=== PATIENT | female | born 1985 | race Caucasian/White ===

== ENCOUNTER 2016-12-11 08:59 | Observation (INO) ==
--- NOTE | 2016-12-11 09:23 | Emergency Department Note ---
Disposition Clinical Impression: Gastroenteritis DKA (diabetic ketoacidosis) Qualifiers: Diabetes mellitus type: type 1 Diabetes mellitus complication detail: without coma Qualified Code(s): E10.10 - Type 1 diabetes mellitus with ketoacidosis without coma Disposition: Admitted As Inpatient Condition: Fair Nausea/Vomiting/Diarrhea HPI - General Chief complaint: ED Nausea/Vomiting/Diarrhea Stated complaint: Nausea Vomiting Diarrhea Time Seen by Provider: 12/11/16 09:02 Source: patient Mode of arrival: private vehicle Limitations: other (memory loss) Nursing Notes Reviewed: Yes Vital Signs Reviewed: Yes - History of Present Illness HPI Narrative: Patient presents to the ED complaining of nausea, vomiting, diarrhea, weakness and lightheadedness. Symptoms have been going on for 3 days. States she thinks she has the flu. She also has body aches. No fever or chills. She cannot give a number of how many episodes of vomiting but states it "is a lot". It is nonbloody and nonbilious. States she has had 4-5 episodes of watery diarrhea each day as well. No abdominal pain. No chest pain or shortness of breath. States she has only had a small amount of ice and water since she was seen here just 24 hours ago for the same symptoms. She is also a diabetic with a history of multiple DKA episodes. Lab work yesterday showed normal kidney function, electrolytes and glucose in the 200s. She states she has not checked her glucose today or taken any insulin because she was too weak to walk to her kitchen at home. She was prescribed Phenergan and Zofran yesterday after receiving IV fluids here in the ED but states she was too weak to go to the pharmacy to get them filled. She has not taken anything at home for her symptoms since being here yesterday. She reports multiple family members sick at home recently with strep throat and flulike symptoms. - Related Data Home Medications Medication Instructions Recorded Confirmed Insulin ASPART [Novolog Flexpen] 5 unit SQ TIDWM 01/09/16 12/10/16 Previous Rx's Medication Instructions Recorded Levothyroxine Sodium [Synthroid] 137 mcg PO DAILY #30 tablet 01/10/16 Insulin DETEMIR [Levemir Flextouch] 32 unit SQ DAILY #0 07/25/16 Ondansetron [Zofran ODT] 4 mg SL Q6HR PRN #5 tab.rapdis 12/10/16 Promethazine [Phenergan] 25 mg RC Q6HR PRN #10 supp.rect 12/10/16 Allergies Allergy/AdvReac Type Severity Reaction Status Date / Time No Known Allergies Allergy Verified 12/10/16 10:40 Constitutional: Reports: fever (subjective), chills, weakness (generalized). Denies: weight change Eyes: Denies: eye pain, eye discharge, vision change ENT ED: Denies: ear pain, throat pain, dental pain, hearing loss, epistaxis, congestion, dysphagia Cardiovascular: Denies: chest pain, palpitations, dyspnea on exertion, edema, syncope Respiratory: Denies: cough, dyspnea, wheezes, hemoptysis, stridor Gastrointestinal: Reports: nausea, vomiting, diarrhea. Denies: abdominal pain, constipation, hematemesis, melena, hematochezia Genitourinary: Denies: dysuria, frequency, hematuria, discharge Musculoskeletal: Reports: myalgia. Denies: back pain, neck pain, arthralgia Integumentary: Denies: rash, abrasion, lesions Neurological: Denies: headache, weakness, numbness, paresthesias, confusion, abnormal gait, vertigo Psychiatric: Denies: anxiety, depression, suicidal thoughts, homicidal thoughts , auditory hallucinations, visual hallucinations Endocrine: Reports: fatigue Hematological/Lymphatic: Denies: easy bleeding, easy bruising Allergic/Immunologic: Denies: facial swelling, urticaria Past Medical History - Past Medical History Medical history: Reports: diabetes, kidney stones, thyroid disease, other Surgical history: Reports: cholecystectomy Psychiatric history: Reports: depression [employer] history: Reports: no [employer]TER history - Social History Smoking Status: Current every day smoker Smokeless Tobacco Status: No Alcohol use: Reports: none Drug use: Reports: none Physical Exam - General Limitations: other General appearance: alert, in no apparent distress - Head Head exam: atraumatic, normocephalic, normal inspection - Eye Eye exam: Present: normal appearance, PERRL, EOMI - ENT ENT exam: normal exam, normal oropharynx, mucous membranes dry - Chest Chest inspection: Present: normal inspection, symmetric chest wall rise - Respiratory Respiratory exam: Present: normal lung sounds bilaterally - Cardiovascular Cardiovascular exam: Present: regular rate, normal rhythm, normal heart sounds - Abdominal Exam Abdominal exam: Present: soft, Non-Tender, normal bowel sounds. Absent: tenderness, distention, guarding, rebound, rigidity - Extremities Exam Extremities exam: Present: normal inspection, full ROM. Absent: tenderness, pedal edema - Back Exam Back exam: Present: normal inspection, full ROM. Absent: tenderness - Neurological Exam Neurological exam: Present: alert, oriented X3 - Psychiatric Psychiatric exam: Present: normal affect, normal mood - Skin Skin exam: Present: warm, dry, intact, normal color. Absent: rash Course Course Narrative: Patient returns to the ED again with complaints of 3 days of nausea, vomiting and diarrhea. She cannot quantify her vomiting but reports keeping down very little water and ice. She has not filled her prescriptions for nausea medicine or taking anything for her diarrhea at home. Given her history of DKA and not using her insulin will check labs for electrolytes, kidney function and glucose. Will give IV fluids along with medication for nausea and diarrhea. Agree with previous assessment from yesterday's visit that she likely has a simple viral gastroenteritis. She is counseled on the importance of needing to fill her prescriptions to continue symptomatic treatment at home. - Reevaluation(s) Reevaluation #1: Laboratory studies showed multiple abnormalities including glucose over 600, low pH, low bicarbonate and sodium with an elevated beta-hydroxybutyric acid consistent with DKA. She was given 10 units of IV insulin along with IV fluids. She will need to be admitted for continued management. Patient and family updated on results and need for admission. I spoke to the hospitalist manager control, Dr. Ruby who has agreed to accept the patient. We will continue to monitor glucose closely and provide insulin as needed until she is transferred to the floor. Time: 12:01 Vital Signs Temperature 98.1 F 12/11/16 09:00 Pulse Rate 118 12/11/16 09:00 Respiratory Rate 16 12/11/16 09:00 Blood Pressure 108/67 12/11/16 09:00 O2 Sat by Pulse Oximetry 97 12/11/16 09:00 Temperature 98.1 F 12/11/16 09:00 Pulse Rate 107 12/11/16 12:12 Respiratory Rate 16 12/11/16 12:12 Blood Pressure 127/75 12/11/16 12:12 O2 Sat by Pulse Oximetry 97 12/11/16 12:12 Oxygen Delivery Oxygen Delivery Room Air Nausea/Vomiting/Diarrhea - Differential Diagnosis Likely: gastroenteritis, dehydration - Medical Records Medical records reviewed: Yes I reviewed the patient's medical records. - Lab Data Lab results reviewed: Yes I reviewed the patient's lab results. Result diagrams: 12/11/16 09:50 12/11/16 09:50 Lab Results 12/11/16 12/11/16 12/11/16 Range/Units 09:50 09:50 09:50 WBC 5.8 (4.3-11.1) K/mcL RBC 4.73 (3.82-4.97) M/mcL Hgb 14.8 (11.5-15.4) g/dL Hct 44.7 (35.3-44.9) % MCV 94.5 (83.0-100.0) fL MCH 31.3 (28.0-33.3) pg MCHC 33.1 (31.6-35.5) g/dL RDW 11.9 (11.5-14.5) % Plt Count 226 (140-400) K/mcL MPV 10.2 (9.4-12.4) fL Immature Gran % 0.2 (0-4) % Seg Neutrophils % 76.8 % Lymphocytes % 14.8 % Monocytes % 7.9 % Eosinophils % 0.0 % Basophils % 0.3 % Neutrophils # 4.5 (1.6-8.9) K/mcL Lymphocytes # 0.9 (0.6-4.6) K/mcL Monocytes # 0.5 (0.0-1.3) K/mcL Eosinophils # 0.0 (0.0-0.6) K/mcL Basophils # 0.0 (0.0-0.2) K/mcL VBG pH 7.21 L (7.32-7.42) pH Units VBG pCO2 31.4 L (41-51) mmHg VBG pO2 27.9 (25-40) mmHg VBG HCO3 12.5 L (21-27) mEq/L Sodium 133 L (136-145) mEq/L Potassium 5.7 H D (3.5-4.5) mEq/L Chloride 98 (98-109) mEq/L Carbon Dioxide 10 L* (19-29) mEq/L BUN 16 (7-20) mg/dL Creatinine 1.47 H D (0.57-1.11) mg/dL Est GFR ( Amer) 51 L (> 60) Est GFR (Non-Af Amer) 42 L (> 60) BUN/Creatinine Ratio 11 (6-26) Glucose 679 H* (70-99) mg/dL POC Glucose (58-89) Calculated Osmolality 309 H (280-300) Calcium 9.4 (8.6-10.8) mg/dL Beta-Hydroxybutyric Acd > 2.00 H (0.02-0.27) mmol/L 12/11/16 12/11/16 Range/Units 12:04 12:06 WBC (4.3-11.1) K/mcL RBC (3.82-4.97) M/mcL Hgb (11.5-15.4) g/dL Hct (35.3-44.9) % MCV (83.0-100.0) fL MCH (28.0-33.3) pg MCHC (31.6-35.5) g/dL RDW (11.5-14.5) % Plt Count (140-400) K/mcL MPV (9.4-12.4) fL Immature Gran % (0-4) % Seg Neutrophils % % Lymphocytes % % Monocytes % % Eosinophils % % Basophils % % Neutrophils # (1.6-8.9) K/mcL Lymphocytes # (0.6-4.6) K/mcL Monocytes # (0.0-1.3) K/mcL Eosinophils # (0.0-0.6) K/mcL Basophils # (0.0-0.2) K/mcL VBG pH (7.32-7.42) pH Units VBG pCO2 (41-51) mmHg VBG pO2 (25-40) mmHg VBG HCO3 (21-27) mEq/L Sodium (136-145) mEq/L Potassium (3.5-4.5) mEq/L Chloride (98-109) mEq/L Carbon Dioxide (19-29) mEq/L BUN (7-20) mg/dL Creatinine (0.57-1.11) mg/dL Est GFR ( Amer) (> 60) Est GFR (Non-Af Amer) (> 60) BUN/Creatinine Ratio (6-26) Glucose (70-99) mg/dL POC Glucose 446 H* 438 H* (58-89) Calculated Osmolality (280-300) Calcium (8.6-10.8) mg/dL Beta-Hydroxybutyric Acd (0.02-0.27) mmol/L
[2016-12-11] MEDS ORDERED: Ondansetron 4 MG/2 ML VIAL IV ONE (09:36)
[2016-12-11] MEDS ORDERED: 0.9 % Sodium Chloride 1,000 ML IV ONE ×2 (09:36→10:53)
[2016-12-11 09:57] LABS: Basophils % 0.3 %; Hematocrit 44.7 % (35.3-44.9); Hemoglobin 14.8 g/dL (11.5-15.4); Immature Granulocytes % 0.2 % (0-4); Lymphocytes # 0.9 K/mcL (0.6-4.6); Lymphocytes % 14.8 %; Mean Corpuscular HGB Conc 33.1 g/dL (31.6-35.5); Mean Corpuscular Hemoglobin 31.3 pg (28.0-33.3); Mean Corpuscular Volume 94.5 fL (83.0-100.0); Mean Platelet Volume 10.2 fL (9.4-12.4); Monocytes # 0.5 K/mcL (0.0-1.3); Monocytes % 7.9 %; Neutrophils # 4.5 K/mcL (1.6-8.9); Platelet Count 226 K/mcL (140-400); Red Blood Count 4.73 M/mcL (3.82-4.97); Red Cell Distribution Width 11.9 % (11.5-14.5); Segmented Neutrophils % 76.8 %
[2016-12-11 10:10] LABS: Beta-Hydroxybutyric Acid > 2.00 mmol/L (0.02-0.27)
[2016-12-11 10:12] LABS: BUN/Creatinine Ratio 11 (6-26); Blood Urea Nitrogen 16 mg/dL (7-20); Calcium 9.4 mg/dL (8.6-10.8); Chloride 98 mEq/L (98-109); Osmolality,Calculated 309 (280-300); Potassium 5.7 mEq/L (3.5-4.5); Sodium 133 mEq/L (136-145); eGFR For African Americans 51 (> 60); eGFR For Non-African Americans 42 (> 60)
[2016-12-11 10:14] LABS: Carbon Dioxide 10 mEq/L (19-29); Glucose 679 mg/dL (70-99)
[2016-12-11] MEDS ORDERED: Insulin Human Regular 10 UNIT in 0.9 % Sodium Chloride 10 ML IV ONE ×2 (10:54→11:15)
[2016-12-11 11:01] LABS: VBG PCO2 31.4 mmHg (41-51); VBG PH 7.21 pH Units (7.32-7.42)
[2016-12-11 11:02] LABS: VBG HCO3 12.5 mEq/L (21-27); VBG PO2 27.9 mmHg (25-40)
[2016-12-11] MEDS ORDERED: Acetaminophen 325 MG TABLET PO ONE (11:41)
[2016-12-11] MEDS ORDERED: Naloxone 0.4 MG/ML INJ IVP PRN ×2 (12:14→13:41)
[2016-12-11] MEDS ORDERED: Insulin Human Regular 20 UNIT in 0.9 % Sodium Chloride 10 ML IV ONE (16:25)
[2016-12-11] MEDS ORDERED: Dextrose Gel 15 GM PO PRN ×2 (16:28)
[2016-12-11] MEDS ORDERED: *HR* Dextrose 50 % in Water (Syg) 50 ML SYRINGE IVP PRN (16:28)
[2016-12-11] MEDS ORDERED: D5% in Water 1,000 ML IV PRN (16:28)
[2016-12-11] MEDS: Insulin LISPRO 300 UNITS/3 ML VIAL SQ SCH (17:37)
--- NOTE | 2016-12-11 18:53 | Internal Med History&Physical ---
Date of Encounter: 12/11/16 Time of Encounter: 18:25 Assessment and Plan (1) DKA (diabetic ketoacidosis) Current visit: Yes Status: Acute She has been admitted to [facility] floor. IV fluids will be given and Accu-Cheks monitored with SSI. Her home dose of Levemir will be increased to 32 units. Qualifiers: Diabetes mellitus type: type 1 Diabetes mellitus complication detail: without coma Qualified Code(s): E10.10 - Type 1 diabetes mellitus with ketoacidosis without coma (2) Gastroenteritis Current visit: Yes Status: Acute She will be given IV fluids and prn anti-emetics (3) Hypothyroid Current visit: No Status: Chronic Will recheck TSH in a.m. Qualifiers: Hypothyroidism type: unspecified Qualified Code(s): E03.9 - Hypothyroidism , unspecified Internal Medicine - H&P: HPI Chief complaint: Nausea, vomiting, DKA Admitted From: Home Plans for Post Hospital Care: Home History of present illness: Ms. Puga is a 31 year old female who came to emergency room December 10 complaining of onset of nausea vomiting diarrhea earlier in the day. She was treated and discharged home. Her symptoms persisted so she came back to emergency room the morning of December 11. Her lab work showed evidence of DKA with serum CO2 of 10 and glucose 679. She was admitted to [facility] floor for ongoing care needs. She is been hospitalized [facility] in the past with DKA. Her most recent hospitalization was June 2016. She was diagnosed with diabetes in 2011. She states she checks her sugars at least 3-4 times daily and states they drop at nighttime to less than 50 mg percent but are often 350-400 milligrams percent range. She denies missing any doses of her insulin. She was instructed at the June 2016 discharged to increase her Levemir to 32 units daily. She did not do this. Her endocrine history is pertinent otherwise for hyperlipidemia and hypothyroidism. She states she ran out of Synthroid approximately 5 days ago. Past Med Surg Social Fam HX - Past Medical History Medical history: diabetes, kidney stones, thyroid disease, other Psychiatric history: depression - Past Surgical History Surgical History: cholecystectomy - Social History Smoking Status: Current every day smoker Smokeless Tobacco Status: No Alcohol use: none Drug use: none - Family History Mother History Unknown: Yes Living Status: Still Living Hx Family Cardiac Disorders: (N/A) Hx Family Respiratory Disorders: Yes (ASTHMA) Hx Family Cancer: No Hx Family GI Disorders: No Hx Family Genitourinary Disorders: No Hx Family Endocrine Disorder: Yes (THYROID) Hx Family Musculoskeletal Disorders: Yes (ARTHRITIS) Hx Family Neuromuscular Disorders: No Hx Family Neurologic Disorders: No Hx Family HEENT Disorders: No Hx Family Autoimmune Disorders: No Hx Family Reproductive Disorders: No Hx Family Psychosocial Disorders: No Hx Family Medical Disorders: No Internal Medicine - H&P: Meds Insulin ASPART [Novolog Flexpen] 5 unit SQ TIDWM 01/09/16 [History] Levothyroxine Sodium [Synthroid] 137 mcg PO DAILY #30 tablet 01/10/16 [Rx] Insulin DETEMIR [Levemir Flextouch] 32 unit SQ DAILY #0 07/25/16 [Rx] Ondansetron [Zofran ODT] 4 mg SL Q6HR PRN #5 tab.rapdis 12/10/16 [Rx] Promethazine [Phenergan] 25 mg RC Q6HR PRN #10 supp.rect 12/10/16 [Rx] Allergies No Known Allergies Allergy (Verified 12/10/16 10:40) All Systems PM: A 10-system review of systems was performed and is negative for pertinent findings except as documented above in the HPI. Review of systems: Her review of systems from the June 2016 hospitalization were reviewed and revised as below. Gen.: Her weight has decreased from 71.668 kg at the June 2016 hospitalization to 67.132 kg now. Cardiovascular: She denies LA hypertension heart failure angina DVT or pulmonary embolus. Respiratory: She smoked since age 20 up to one half pack per day. She does not have known chronic lung disease and does not wear home oxygen. GI: She denies disorders of her liver gallbladder or exocrine pancreas : She has had kidney stones in the past. She denies other kidney or bladder disorders. She has had acute azotemia documented with previous episodes of DKA. Endocrine: As per history of present illness Neurologic: She denies large distribution strokes or seizures. Heme/onc: She denies blood disorders cancers or anemia. Psychiatric: She denies anxiety depression or other mental health issues Musk skeletal: She denies arthritis gout or osteoporosis. - Constitutional Vitals: Temp Pulse Resp BP Pulse Ox 98.8 F 113 16 103/60 97 12/11/16 16:09 12/11/16 16:09 12/11/16 16:09 12/11/16 16:09 12/11/16 16:09 Exam: Gen.: She is a well-developed well-nourished female lying in bed who appears in no severe distress at present time. HEENT: Head is atraumatic and normocephalic. Eyes: EOMI. There is no scleral icterus. Mouth: Mucosa is moist. Neck: Supple and nontender. There is no thyromegaly or adenopathy noted. Heart: Regular and tachycardic at a rate of 120/m. No murmurs or gallops heard. Lungs: No wheezes or crackles heard. Abdomen: Soft and nontender. No masses or guarding are noted. Extremities: There is no cyanosis edema or clubbing noted. Dorsalis pedis and posttibial pulses are 1-2 over 2 bilaterally. Neurologic: Mental status: She is talkative and a fair historian. Cranial nerves: Smile is symmetric. Forehead wrinkles bilaterally. Tongue protrudes midline. EOMI. Motor: There is no pronator drift. Cerebellar: Finger to nose is intact bilaterally. Skin: Warm and dry Internal Med - H&P Results - Labs CBC & Chem 7: 12/11/16 09:50 12/11/16 09:50 - VTE Reasons for not Prescribing Prophylaxis: Treatment not Indicated - Low risk for VTE
[2016-12-11] MEDS ORDERED: 0.9 % Sodium Chloride 1,000 ML IVC SCH (19:00)
[2016-12-11] MEDS ORDERED: Insulin DETEMIR 100 UNIT/ML X5UNITS SQ SCH (21:00)
[2016-12-11] MEDS: 0.9 % Sodium Chloride 1,000 ML IV SCH (21:34)
[2016-12-12] MEDS: 0.9 % Sodium Chloride 1,000 ML IV SCH ×2 (02:55→09:28)
[2016-12-12 06:12] LABS: Basophils % 0.3 %; Hematocrit 32.5 % (35.3-44.9); Hemoglobin 11.3 g/dL (11.5-15.4); Immature Granulocytes % 0.3 % (0-4); Lymphocytes # 1.2 K/mcL (0.6-4.6); Lymphocytes % 33.4 %; Mean Corpuscular HGB Conc 34.8 g/dL (31.6-35.5); Mean Corpuscular Hemoglobin 31.7 pg (28.0-33.3); Mean Platelet Volume 9.8 fL (9.4-12.4); Monocytes # 0.4 K/mcL (0.0-1.3); Monocytes % 11.8 %; Platelet Count 194 K/mcL (140-400); Red Blood Count 3.57 M/mcL (3.82-4.97); Red Cell Distribution Width 11.9 % (11.5-14.5); Segmented Neutrophils % 54.2 %
[2016-12-12 06:41] LABS: Alanine Aminotransferase 11 Units/L (0-55); Albumin/Globulin Ratio 1.2 (1.1-2.2); Alkaline Phosphatase 81 Units/L (38-126); Aspartate Amino Transferase 15 Units/L (5-34); BUN/Creatinine Ratio 13 (6-26); Bilirubin,Total 0.2 mg/dL (0.2-1.2); Blood Urea Nitrogen 10 mg/dL (7-20); Calcium 7.4 mg/dL (8.6-10.8); Carbon Dioxide 16 mEq/L (19-29); Chloride 112 mEq/L (98-109); Globulin 2.6 g/dL (2.4-3.5); Glucose 74 mg/dL (70-99); Magnesium 1.2 mg/dL (1.6-2.6); Osmolality,Calculated 284 (280-300); Phosphorous 1.8 mg/dL (2.3-4.7); Potassium 3.7 mEq/L (3.5-4.5); Sodium 138 mEq/L (136-145); Total Protein 5.6 g/dL (6.0-8.3); eGFR For African Americans > 60 (> 60); eGFR For Non-African Americans > 60 (> 60)
[2016-12-12 06:52] LABS: Beta-Hydroxybutyric Acid > 2.00 mmol/L (0.02-0.27)
[2016-12-12 07:02] LABS: Thyroid Stimulating Hormone 27.881 mcIU/mL (0.350-4.840)
[2016-12-12] MEDS: Insulin LISPRO 300 UNITS/3 ML VIAL SQ SCH ×3 (08:29→17:42)
[2016-12-12 08:35] LABS: Hemoglobin A1C 11.9 %
[2016-12-12] MEDS: Acetaminophen 325 MG TABLET PO PRN ×2 (09:30→16:29)
--- NOTE | 2016-12-12 11:25 | Internal Med Progress Note ---
Date of Encounter: 12/12/16 Time of Encounter: 11:15 - Assessment and plan (1) DKA (diabetic ketoacidosis) Current Visit: Yes Status: Acute Assessment and plan: December 12. Continue IV fluids. Will reduce Levemir dose slightly since she had hypoglycemia this morning. Hemoglobin A1c returned significantly elevated at 11.9%. Check labs in a.m. Qualifiers: Diabetes mellitus type: type 1 Diabetes mellitus complication detail: without coma Qualified Code(s): E10.10 - Type 1 diabetes mellitus with ketoacidosis without coma (2) Gastroenteritis Current Visit: Yes Status: Acute Assessment and plan: Continue IV fluids and prn anti-emetics (3) Hypothyroid Current Visit: No Status: Chronic Assessment and plan: December 12. TSH returned significantly elevated at 27.881. I will increase dose of Synthroid. Qualifiers: Hypothyroidism type: unspecified Qualified Code(s): E03.9 - Hypothyroidism , unspecified (4) Hypomagnesemia Current Visit: Yes Status: Acute Assessment and plan: December 12. We will give magnesium sulfate IV (5) Hypophosphatemia Current Visit: Yes Status: Acute Assessment and plan: December 12. We will give Neutra-Phos and recheck labs in a.m. - Subjective Interval history: December 12. She has no new complaints. She states she still does not feel well. Denies vomiting this morning. - Constitutional Vitals: Temp Pulse Resp BP Pulse Ox 99.6 F 96 18 94/57 94 L 12/12/16 10:45 12/12/16 10:45 12/12/16 10:45 12/12/16 10:45 12/12/16 10:45 Exam: She is sitting in bed and appears to be fairly comfortable. She is not dyspneic and does not complain of pain. I reviewed her medications and lab results with her. Internal Medicine: Result - Labs CBC & Chem 7: 12/12/16 05:43 12/12/16 05:43 Labs: Short CBC 12/12/16 Range/Units 05:43 WBC 3.6 L (4.3-11.1) K/mcL Hgb 11.3 L D (11.5-15.4) g/dL Hct 32.5 L (35.3-44.9) % Plt Count 194 (140-400) K/mcL Neutrophils # 2.0 (1.6-8.9) K/mcL BMP 12/12/16 05:43 Sodium 138 Potassium 3.7 D Chloride 112 H Carbon Dioxide 16 L BUN 10 Creatinine 0.80 Glucose 74 Calcium 7.4 L D Liver Function 12/12/16 Range/Units 05:43 Total Bilirubin 0.2 (0.2-1.2) mg/dL AST 15 (5-34) Units/L ALT 11 (0-55) Units/L Alkaline Phosphatase 81 (38-126) Units/L Albumin 3.0 L (3.5-5.0) g/dL - VTE Reasons for not Prescribing Prophylaxis: Treatment not Indicated - Low risk for VTE Consult Discharge Plan - Plan Referrals: NO,PCP [Primary Care Provider] - 1 week
[2016-12-12] MEDS ORDERED: Magnesium Sulfate 1 GM in D5% in Water 100 ML IVPB ONE (11:30)
[2016-12-12] MEDS ORDERED: Insulin DETEMIR 100 UNIT/ML X5UNITS SQ SCH (11:31)
[2016-12-12] MEDS: 0.45 % Sodium Chloride w/KCl 20 MEQ/1,000 ML MLS IVC SCH ×2 (15:04→22:55)
[2016-12-12] MEDS: Ondansetron 4 MG/2 ML VIAL IVP PRN ×2 (16:20→21:09)
[2016-12-12] MEDS ORDERED: D5% in 0.45% NACL 1,000 ML IVC PRN (20:57)
[2016-12-12] MEDS ORDERED: D5% in 0.45% NACL w KCl 20 MEQ/1,000 ML MLS IVC PRN (20:57)
[2016-12-13] MEDS: 0.45 % Sodium Chloride w/KCl 20 MEQ/1,000 ML MLS IVC SCH ×2 (01:58→13:12)
[2016-12-13] MEDS: Insulin DETEMIR 100 UNIT/ML X5UNITS SQ SCH ×2 (06:13→20:03)
[2016-12-13 06:59] LABS: Basophils % 0.2 %; Eosinophils % 0.4 %; Hematocrit 31.9 % (35.3-44.9); Hemoglobin 11.1 g/dL (11.5-15.4); Immature Granulocytes % 0.2 % (0-4); Lymphocytes % 22.1 %; Mean Corpuscular HGB Conc 34.8 g/dL (31.6-35.5); Mean Corpuscular Volume 91.9 fL (83.0-100.0); Mean Platelet Volume 9.4 fL (9.4-12.4); Monocytes # 0.4 K/mcL (0.0-1.3); Monocytes % 8.1 %; Neutrophils # 3.2 K/mcL (1.6-8.9); Platelet Count 164 K/mcL (140-400); Red Blood Count 3.47 M/mcL (3.82-4.97); Red Cell Distribution Width 12.2 % (11.5-14.5)
[2016-12-13 07:16] LABS: Alanine Aminotransferase 12 Units/L (0-55); Albumin 2.8 g/dL (3.5-5.0); Albumin/Globulin Ratio 0.9 (1.1-2.2); Alkaline Phosphatase 80 Units/L (38-126); Aspartate Amino Transferase 18 Units/L (5-34); Bilirubin,Total 0.2 mg/dL (0.2-1.2); Calcium 7.4 mg/dL (8.6-10.8); Carbon Dioxide 16 mEq/L (19-29); Chloride 106 mEq/L (98-109); Glucose 400 mg/dL (70-99); Magnesium 1.6 mg/dL (1.6-2.6); Osmolality,Calculated 292 (280-300); Phosphorous 1.4 mg/dL (2.3-4.7); Potassium 4.5 mEq/L (3.5-4.5); Sodium 134 mEq/L (136-145); Total Protein 5.8 g/dL (6.0-8.3)
[2016-12-13 07:18] LABS: Beta-Hydroxybutyric Acid > 2.00 mmol/L (0.02-0.27); Blood Urea Nitrogen 5 mg/dL (7-20)
[2016-12-13] MEDS: Insulin LISPRO 300 UNITS/3 ML VIAL SQ SCH ×3 (08:02→16:23)
[2016-12-13] MEDS: Acetaminophen 325 MG TABLET PO PRN ×2 (08:35→20:03)
[2016-12-13 08:46] LABS: BUN/Creatinine Ratio 6 (6-26); eGFR For African Americans > 60 (> 60); eGFR For Non-African Americans > 60 (> 60)
[2016-12-13] MEDS ORDERED: Insulin DETEMIR 100 UNIT/ML X5UNITS SQ ONE (09:45)
[2016-12-13] MEDS: Ondansetron 4 MG/2 ML VIAL IVP PRN (12:52)
--- NOTE | 2016-12-13 15:28 | Internal Med Progress Note ---
Date of Encounter: 12/13/16 Time of Encounter: 15:15 - Assessment and plan (1) DKA (diabetic ketoacidosis) Current Visit: Yes Status: Acute Assessment and plan: December 12. Continue IV fluids. Will reduce Levemir dose slightly since she had hypoglycemia this morning. Hemoglobin A1c returned significantly elevated at 11.9%. Check labs in a.m. December 13. Continue IV fluids. We will continue Levemir at present dose and continue Accu-Cheks with SSI. Recheck labs in a.m. Qualifiers: Diabetes mellitus type: type 1 Diabetes mellitus complication detail: without coma Qualified Code(s): E10.10 - Type 1 diabetes mellitus with ketoacidosis without coma (2) Gastroenteritis Current Visit: Yes Status: Acute Assessment and plan: December 12. Continue IV fluids and prn anti-emetics (3) Hypothyroid Current Visit: No Status: Chronic Assessment and plan: December 12. TSH returned significantly elevated at 27.881. I will increase dose of Synthroid. Qualifiers: Hypothyroidism type: unspecified Qualified Code(s): E03.9 - Hypothyroidism , unspecified (4) Hypomagnesemia Current Visit: Yes Status: Acute Assessment and plan: December 12. We will give magnesium sulfate IV December 13. Magnesium level now normal. We will give magnesium oxide for a few days to maintain normal levels. (5) Hypophosphatemia Current Visit: Yes Status: Acute Assessment and plan: December 12. We will give Neutra-Phos and recheck labs in a.m. December 13. Will increase dose of Neutra-Phos since her level is still subnormal. - Subjective Interval history: December 12. She complains of soreness in her right anterior lower chest area when she coughs. She states she still does not feel well overall. She reports she had a single episode of vomiting this morning. She did not receive the ordered dose of Levemir last evening - Constitutional Vitals: Temp Pulse Resp BP Pulse Ox 99.2 F 106 18 102/70 96 12/13/16 14:51 12/13/16 14:51 12/13/16 14:51 12/13/16 14:51 12/13/16 14:51 Exam: She is lying in bed and appears in minimal distress. There is reproducible soreness in her right lower anterior rib area to compression/palpation. Her heart is regular without murmurs gallops or ectopics. Lungs are clear. Extremities show no edema. Her abdomen is soft and nontender. I reviewed her medications and lab results. Internal Medicine: Result - Labs CBC & Chem 7: 12/13/16 06:52 12/13/16 06:52 Labs: Short CBC 12/13/16 Range/Units 06:52 WBC 4.6 (4.3-11.1) K/mcL Hgb 11.1 L (11.5-15.4) g/dL Hct 31.9 L (35.3-44.9) % Plt Count 164 (140-400) K/mcL Neutrophils # 3.2 (1.6-8.9) K/mcL BMP 12/13/16 06:52 Sodium 134 L Potassium 4.5 Chloride 106 Carbon Dioxide 16 L BUN 5 L Creatinine 0.85 Glucose 400 H Calcium 7.4 L Liver Function 12/13/16 Range/Units 06:52 Total Bilirubin 0.2 (0.2-1.2) mg/dL AST 18 (5-34) Units/L ALT 12 (0-55) Units/L Alkaline Phosphatase 80 (38-126) Units/L Albumin 2.8 L (3.5-5.0) g/dL - VTE Reasons for not Prescribing Prophylaxis: Treatment not Indicated - Low risk for VTE Consult Discharge Plan - Plan Referrals: NO,PCP [Primary Care Provider] - 1 week
[2016-12-13] MEDS ORDERED: 0.45 % Sodium Chloride w/KCl 20 MEQ/1,000 ML MLS IVC SCH (15:35)
[2016-12-13] MEDS: Magnesium Oxide 400 MG TABLET PO SCH (16:08)
[2016-12-14 05:43] LABS: Beta-Hydroxybutyric Acid 0.32 mmol/L (0.02-0.27)
[2016-12-14 05:56] LABS: BUN/Creatinine Ratio 11 (6-26); Blood Urea Nitrogen 7 mg/dL (7-20); Carbon Dioxide 22 mEq/L (19-29); Chloride 110 mEq/L (98-109); Glucose 96 mg/dL (70-99); Osmolality,Calculated 288 (280-300); Phosphorous 1.8 mg/dL (2.3-4.7); Potassium 3.3 mEq/L (3.5-4.5); Sodium 140 mEq/L (136-145); eGFR For African Americans > 60 (> 60); eGFR For Non-African Americans > 60 (> 60)
[2016-12-14] MEDS: Acetaminophen 325 MG TABLET PO PRN (06:10)
[2016-12-14 07:23] VITALS: BP 91/56
[2016-12-14] MEDS: Insulin LISPRO 300 UNITS/3 ML VIAL SQ SCH (07:35)
[2016-12-14] MEDS: Magnesium Oxide 400 MG TABLET PO SCH (08:44)
--- NOTE | 2016-12-14 10:05 | Discharge Summary ---
Date of Encounter: 12/14/16 Time of Encounter: 09:55 - Discharge Diagnosis (1) DKA (diabetic ketoacidosis) Priority: Primary Status: Acute Qualifiers: Diabetes mellitus type: type 1 Diabetes mellitus complication detail: without coma Qualified Code(s): E10.10 - Type 1 diabetes mellitus with ketoacidosis without coma (2) Gastroenteritis Priority: Secondary Status: Acute (3) Hypothyroid Priority: Secondary Status: Chronic Qualifiers: Hypothyroidism type: unspecified Qualified Code(s): E03.9 - Hypothyroidism , unspecified (4) Hypomagnesemia Priority: Secondary Status: Acute (5) Hypophosphatemia Priority: Secondary Status: Acute - Discharge Medications Prescriptions: Levothyroxine [Synthroid] 175 mcg PO 0630 #30 tablet Magnesium Oxide [Mag-Ox] 400 mg PO DAILY #7 tablet Phos-NaK [Neutra-Phos] 2 each PO BID #12 powd.pack Home Medications: Insulin ASPART [Novolog Flexpen] 5 unit SQ TIDWM 01/09/16 [History] Ondansetron [Zofran ODT] 4 mg SL Q6HR PRN #5 tab.rapdis 12/10/16 [Rx] Promethazine [Phenergan] 25 mg RC Q6HR PRN #10 supp.rect 12/10/16 [Rx] Insulin DETEMIR [Levemir Flextouch] 25 unit SQ DAILY #0 12/14/16 [Rx] Levothyroxine [Synthroid] 175 mcg PO 0630 #30 tablet 12/14/16 [Rx] Magnesium Oxide [Mag-Ox] 400 mg PO DAILY #7 tablet 12/14/16 [Rx] Phos-NaK [Neutra-Phos] 2 each PO BID #12 powd.pack 12/14/16 [Rx] Allergies/Adverse Reactions: Allergies No Known Allergies Allergy (Verified 12/10/16 10:40) Date of admission: 12/11/16 12:11 Primary care physician: Brandy Joiner CNP - Patient Status Disposition: Home, Self-Care Condition: Fair Overall status at discharge: patient is progressing back to baseline - Discharge Instructions Follow Up With: Brandy Joiner CNP [Advanced Practice Nurse] - 1 week - Diet and Activity Activity: resume usual activities as tolerated Diet: diabetic diet Hospital course: Ms. Puga is a 31 year old female who came to emergency room December 10 complaining of onset of nausea vomiting diarrhea earlier in the day. She was treated and discharged home. Her symptoms persisted so she came back to emergency room the morning of December 11. Her lab work showed evidence of DKA with serum CO2 of 10 and glucose 679. She was admitted to [facility] floor for ongoing care needs. Initial orders were written by the emergency room physician. I saw her on December 11 and performed a history and physical. She was started on IV fluids and given sliding scale insulin. She reported she had never increased her Levemir dose from 22 units as she had been instructed to do t the time of her last discharge. This was increased during her hospitalization to 25 units. Sliding scale insulin was given based on Accu-Cheks. She had resolution of the DKA by morning of December 14. She had no vomiting the last 24 hours of hospitalization. She was able to take in adequate amounts of food and fluid. TSH returned significantly elevated at 27.881. Her Synthroid dose was increased to 175 g daily On December 14 I felt she was stable for discharge home. She will Follow with Brandy Joiner within 1 week. - Time Spent with Patient Total time spent providing and/or coordinating discharge services: - Constitutional Vitals: Temp Pulse Resp BP Pulse Ox 98.5 F 79 16 91/56 93 L 12/14/16 07:13 12/14/16 07:13 12/14/16 07:13 12/14/16 07:13 12/14/16 07:13 - VTE Reasons for not Prescribing Prophylaxis: Treatment not Indicated - Low risk for VTE
== END 2016-12-14 10:52 | disposition home or self-care (01) ==
LOC: EMEROOPIK 08:59 → INPPIK 08:59
PROVIDERS: ADMIT Internal Medicine; ATTEND Internal Medicine

== ENCOUNTER 2017-06-04 18:32 | Observation (INO) ==
--- NOTE | 2017-06-04 19:10 | Emergency Department Note ---
Disposition Clinical Impression: DKA (diabetic ketoacidosis), Chest pain, Diabetes Disposition: Admitted As Inpatient Condition: Fair Referrals: NO,PCP [Primary Care Provider] - Forms: ED Satisfaction Letter Time of Disposition: 22:15 (yamilet [facility]) Chest Pain HPI - General Chief Complaint: ED Chest Pain Stated Complaint: chest pain, vomiting and "high sugar" Time Seen by Provider: 06/04/17 18:45 Source: patient Mode of arrival: wheelchair Limitations: no limitations Vital Signs Reviewed: Yes Nursing Notes Reviewed: Yes - History of Present Illness HPI Narrative: 32-year-old female presenting to the emergency room complaining of chest pain but also drinking lots of fluids not feeling well weak and tired noted that her sugars are up but she also tells me she is out of medications and has not filled them subsequently her sugars may be off patient is a very slowpatient denies though patient has been out of her medications had not told her mom about it in addition she has had no blurred vision or double vision plodding tiredness weakness chest pain have been present she denies any abdominal pain or discomfort denies diarrhea as notes that her urine has a strong odor associated with urination Pt complaint: chest pain Onset (ago): day(s) Duration: intermittent Onset: during rest, during exertion Pain Location: substernal Severity: moderate Severity scale (1-10): 7 Quality: heaviness Pain Radiation: none Improves with: nothing Worsens with: nothing Associated symptoms: Reports: palpitations. Denies: nausea, vomiting, diaphoresis, dyspnea, sense of impending doom, syncope, fever, cough, leg swelling Treatments prior to arrival chest pain: none - Related Data Home Medications Medication Instructions Recorded Confirmed Insulin ASPART [Novolog Flexpen] 5 unit SQ TIDWM 01/09/16 12/10/16 Previous Rx's Medication Instructions Recorded Ondansetron [Zofran ODT] 4 mg SL Q6HR PRN #5 tab.rapdis 12/10/16 Promethazine [Phenergan] 25 mg RC Q6HR PRN #10 supp.rect 12/10/16 Insulin DETEMIR [Levemir Flextouch] 25 unit SQ DAILY #0 12/14/16 Levothyroxine [Synthroid] 175 mcg PO 0630 #30 tablet 12/14/16 Magnesium Oxide [Mag-Ox] 400 mg PO DAILY #7 tablet 12/14/16 Phos-NaK [Neutra-Phos] 2 each PO BID #12 powd.pack 12/14/16 Allergies Allergy/AdvReac Type Severity Reaction Status Date / Time No Known Allergies Allergy Verified 12/10/16 10:40 All systems ED: reviewed and negative except as stated. Constitutional: Reports: weakness. Denies: fever, chills Eyes: Denies: eye pain, eye discharge ENT ED: Denies: ear pain Cardiovascular: Reports: chest pain, palpitations Respiratory: Denies: cough, dyspnea, wheezes Gastrointestinal: Denies: abdominal pain Genitourinary: Denies: urgency, dysuria Musculoskeletal: Denies: back pain, neck pain Integumentary: Denies: rash Neurological: Denies: headache Psychiatric: Denies: anxiety Endocrine: Reports: fatigue, polydipsia, polyuria Hematological/Lymphatic: Denies: easy bleeding Allergic/Immunologic: Denies: facial swelling Chest Pain PMH - Past Medical History Medical history: Reports: diabetes, kidney stones, thyroid disease, other ( poorly controlled Diabetic) Surgical history: Reports: cholecystectomy Psychiatric history: Reports: depression [employer] history: Reports: no [employer] history - Social History Smoking Status: Current every day smoker Alcohol use: Reports: none Drug use: Reports: none Physical Exam - General Limitations: no limitations General appearance: alert, in no apparent distress, other (slowed response) - Head Head exam: atraumatic, normocephalic, normal inspection - Eye Eye exam: Present: normal appearance, PERRL, EOMI - ENT ENT exam: normal exam, normal oropharynx, mucous membranes moist, normal external ear exam - Neck Neck exam: Present: normal inspection, full ROM, trachea midline - Chest Chest inspection: Present: normal inspection, symmetric chest wall rise - Respiratory Respiratory exam: Present: normal lung sounds bilaterally - Cardiovascular Cardiovascular exam: Present: regular rate, normal rhythm, normal heart sounds - Abdominal Exam Abdominal exam: Present: soft, Non-Tender, normal bowel sounds. Absent: mass, pulsatile mass - Extremities Exam Extremities exam: Present: normal inspection, full ROM, normal capillary refill. Absent: tenderness, joint swelling - Expanded Lower Extremity Exam Neurovascular/Tendon exam: Present: normal capillary refill, normal fine/light touch Gait: observed and normal - Back Exam Back exam: Present: normal inspection, full ROM. Absent: muscle spasm - Neurological Exam Neurological exam: Present: alert, oriented X3, CN II-XII intact, normal gait ( but weak) - Psychiatric Psychiatric exam: Present: flat affect - Skin Skin exam: Present: warm, dry, intact, normal color Course Course Narrative: Patient was seen and examined IV was established given 2 L normal saline showing significant ketones in her serum it was recommended for admission IV hydration patient still having elevated sugars at this time patient also has been getting history of what is consistent with noncompliance because she ran out of medications and did not tell her mom that she needed refills which may be part of her previous anoxic brain injury which occurred previously causing some mental care as result that she will be hydrated and admitted - Reevaluation(s) Reevaluation #1: Note with conversation with the patient she does appear to have a very slow retention of history when spoken to her about etiologies of what is causing her problems Vital Signs Temperature 98.3 F 06/04/17 18:33 Pulse Rate 105 06/04/17 18:33 Respiratory Rate 18 06/04/17 18:33 Blood Pressure 100/73 06/04/17 18:33 O2 Sat by Pulse Oximetry 94 06/04/17 18:33 Temperature 98.3 F 06/04/17 18:36 Pulse Rate 105 06/04/17 18:36 Respiratory Rate 18 06/04/17 18:36 Blood Pressure 100/73 06/04/17 18:36 O2 Sat by Pulse Oximetry 94 06/04/17 18:36 Oxygen Delivery Oxygen Delivery Room Air Chest Pain - MDM Narrative Medical decision making narrative: Diabetes DKA metabolic or infectious etiology - Differential Diagnosis Likely: atypical chest pain, chest pain - Medical Records Medical records reviewed: Yes I reviewed the patient's medical records. - Lab Data Lab results reviewed: Yes I reviewed the patient's lab results. - EKG Data EKG attestation: Yes I reviewed and interpreted this EKG. EKG results narrative: Sinus rhythm rate 85 WA 156 QRS 82 QT 348 axis LX Heart Score - Score History: Slightly Suspicious EKG: Normal Age: Less than 45 Risk Factors: 1-2 risk factors Troponin: Less than normal limit HEART Score Total: 1 Critical Care Time Critical Care Time: Yes Total Critical Care Time: 35 Attestation: Critical care performed: 35 minutes as the result of the patient being hyperglycemic but also showing evidence of diabetic ketoacidosis because of the caal tones and the elevated Oxyhood butyrate patient has been with this condition previously and has been a cardiac arrest as a result patient be admitted IV hydrated to prevent further complications or risk of renal impairment Discussion with Dr. Ruby Time is exclusive of separately billable procedures. Time includes: direct patient care, patient reassessment, coordination of patient care, interpretation of data (laboratory data, radiology data, and respiratory data), review of patient's medical records, medical consultation and documentation of patient care. Procedures included in critical care time: Procedures excluded from critical care time:
[2017-06-04] MEDS ORDERED: Ondansetron ODT 4 MG TAB.RAPDIS SL ONE (19:11)
[2017-06-04 19:24] LABS: Basophils # 0.1 K/mcL (0.0-0.2); Basophils % 0.9 %; Eosinophils # 0.1 K/mcL (0.0-0.6); Eosinophils % 1.9 %; Hemoglobin 14.4 g/dL (11.5-15.4); Immature Granulocytes % 0.3 % (0-4); Lymphocytes % 30.1 %; Mean Corpuscular HGB Conc 35.1 g/dL (31.6-35.5); Mean Corpuscular Hemoglobin 30.5 pg (28.0-33.3); Mean Corpuscular Volume 86.9 fL (83.0-100.0); Mean Platelet Volume 10.3 fL (9.4-12.4); Monocytes # 0.4 K/mcL (0.0-1.3); Monocytes % 5.4 %; Platelet Count 265 K/mcL (140-400); Red Blood Count 4.72 M/mcL (3.82-4.97); Red Cell Distribution Width 12.1 % (11.5-14.5); Segmented Neutrophils % 61.4 %
[2017-06-04 19:41] LABS: Prothrombin Time 10.7 Seconds (9.4-12.1)
[2017-06-04 19:44] LABS: Alanine Aminotransferase 12 Units/L (0-55); Albumin/Globulin Ratio 0.9 (1.1-2.2); Alkaline Phosphatase 176 Units/L (38-126); Aspartate Amino Transferase 14 Units/L (5-34); BUN/Creatinine Ratio 16 (6-26); Bilirubin,Total 0.6 mg/dL (0.2-1.2); Blood Urea Nitrogen 18 mg/dL (7-20); Calcium 10.3 mg/dL (8.6-10.8); Carbon Dioxide 23 mEq/L (19-29); Chloride 96 mEq/L (98-109); Globulin 4.4 g/dL (2.4-3.5); Glucose 496 mg/dL (70-99); Lipase 23 Units/L (8-78); Osmolality,Calculated 300 (280-300); Potassium 4.1 mEq/L (3.5-4.5); Sodium 133 mEq/L (136-145); Total Protein 8.4 g/dL (6.0-8.3); eGFR For African Americans > 60 (> 60); eGFR For Non-African Americans 57 (> 60)
[2017-06-04] MEDS ORDERED: Insulin Regular, Human 100 UNIT/ML IV ONE (20:03)
[2017-06-04 20:08] LABS: Bilirubin,Urine Small (Negative); Blood,Urine Negative (Negative); Clarity,Urine Slightly Cloudy (Clear); Glucose,Urine (UA) 500 mg/dL (Normal); Ketones,Urine 40 mg/dL (Negative); Leukocyte Esterase,Urine Negative (Negative); Nitrite,Urine Negative (Negative); Protein,Urine Negative (Neg-Trace); Specific Gravity,Urine <= 1.005 (1.010-1.025); Urobilinogen,Urine Normal (Normal)
[2017-06-04 20:10] LABS: Color,Urine Light Yellow (Yellow)
[2017-06-04] MEDS: 0.9 % Sodium Chloride 1,000 ML IVC SCH ×3 (20:12→23:15)
[2017-06-04 20:15] LABS: Squamous Epithelial Cell,Urine Many per lpf (None-Few)
[2017-06-04 20:16] LABS: Bacteria,Urine Moderate per hpf (None-Few); WBC,Urine 0-3 per hpf (0-3)
[2017-06-04] MEDS ORDERED: Naloxone 0.4 MG/ML INJ IVP PRN (22:55)
[2017-06-04] MEDS ORDERED: Dextrose Gel 15 GM PO PRN ×2 (22:55)
[2017-06-04] MEDS ORDERED: *HR* Dextrose 50 % in Water (Syg) 50 ML SYRINGE IVP PRN (22:55)
[2017-06-04] MEDS ORDERED: D5% in Water 1,000 ML IVC PRN (22:55)
[2017-06-04] MEDS ORDERED: Ondansetron ODT 4 MG TAB.RAPDIS SL PRN (22:55)
[2017-06-05] MEDS ORDERED: *HR* HYDROcodone/Acet 5/325 mg TABLET PO PRN (00:38)
[2017-06-05] MEDS ORDERED: Insulin LISPRO 300 UNITS/3 ML VIAL SQ ONE (00:41)
[2017-06-05] MEDS: 0.9 % Sodium Chloride 1,000 ML IVC SCH ×3 (03:30→08:51)
[2017-06-05 07:55] LABS: Prothrombin Time 11.1 Seconds (9.4-12.1)
[2017-06-05] MEDS ORDERED: NON-FORMULARY MEDICATION 1 EACH EACH (Insulin Aspart [Novolog Flexpen] 5 UNIT) SQ SCH (08:00)
[2017-06-05] MEDS: Insulin LISPRO 300 UNITS/3 ML VIAL SQ SCH ×6 (08:27→16:53)
[2017-06-05] MEDS ORDERED: Magnesium Oxide 400 MG TABLET PO SCH (09:00)
[2017-06-05] MEDS ORDERED: Insulin DETEMIR 100 UNIT/ML per UNIT SQ SCH (09:00)
[2017-06-05] MEDS ORDERED: INSULIN DETEMIR 25 UNIT SQ SCH (09:00)
[2017-06-05] MEDS ORDERED: Insulin DETEMIR 100 UNIT/ML X5UNITS SQ SCH (09:45)
--- NOTE | 2017-06-05 12:26 | Electrocardiograph Report ---
[address] [place] [address] Test Date: 2017-06-04 Pat Name: Lisa Puga Department: [id number] Room: [facility] Gender: F Alteration Tailor: TT : 1985 Requested By: Brandi Barrios Order Number: [id number] Reading MD: Emerson Patton MD Measurements Intervals [place] Rate: 85 P: 68 CO: 156 QRS: 68 QRSD: 82 T: 63 QT: 348 QTc: 390 Interpretive Statements SINUS RHYTHM Electronically Signed On 06-05-2017 12:24:58 EDT by Emerson Patton MD
[2017-06-05 16:35] LABS: BUN/Creatinine Ratio 15 (6-26); Blood Urea Nitrogen 12 mg/dL (7-20); Carbon Dioxide 20 mEq/L (19-29); Chloride 104 mEq/L (98-109); Glucose 337 mg/dL (70-99); Magnesium 1.1 mg/dL (1.6-2.6); Osmolality,Calculated 291 (280-300); Phosphorous 3.1 mg/dL (2.3-4.7); Potassium 3.7 mEq/L (3.5-4.5); Sodium 134 mEq/L (136-145); eGFR For African Americans > 60 (> 60); eGFR For Non-African Americans > 60 (> 60)
[2017-06-05 17:13] VITALS: BP 97/64
[2017-06-05] MEDS ORDERED: Magnesium Oxide 400 MG TABLET PO ONE (18:30)
--- NOTE | 2017-06-05 18:37 | Internal Med History&Physical ---
Date of Encounter: 06/05/17 Time of Encounter: 18:00 Assessment and Plan (1) Chest pain Current visit: Yes Status: Acute Doubt myocardial ischemic pain from history and physical. Repeat cardiac enzymes were ordered through emergency room. Qualifiers: Chest pain type: unspecified Qualified Code(s): R07.9 - Chest pain, unspecified (2) Diabetes Current visit: Yes Status: Chronic Home dose of Levemir was ordered through emergency room. Accu-Cheks with SSI were ordered. Qualifiers: Diabetes mellitus type: type 1 Diabetes mellitus complication status: without complication Qualified Code(s): E10.9 - Type 1 diabetes mellitus without complications Internal Medicine - H&P: HPI Chief complaint: Chest pain Admitted From: Home Plans for Post Hospital Care: Home History of present illness: Ms. Puga is a 32 year old female who came to emergency room stating she had sharp chest pain while doing leisure activities early the day of admission. She reports a single episode of vomiting. She decided to come to emergency room and was evaluated and found to have ketosis with significant hyperglycemia with blood sugar 496 mg/dL. She did not have acidosis. She was [facility] floor for ongoing care needs. She was hospitalized last at [facility] November 2016 with DKA. She was diagnosed with diabetes in 2011. She states she checks her blood sugars at least 3-4 times daily and reports they drop at nighttime to 40-50 mg percent but are often 400+ mg percent throughout the day. She states she ran out of Levemir approximately 2 days prior to coming to the hospital but has now picked up a refill. She reports she has still been taking her NovoLog. She admits she is not following a diabetic diet. Her endocrine history is pertinent otherwise for hyperlipidemia and hypothyroidism. She states ran out of Synthroid approximate 2 days ago but has refills available. She denies chest pain on exertion and states she only has chest discomfort when her blood sugars run high. She denies NE hypertension heart failure DVT or pulmonary embolus. She states she is pain-free at this time except for slight headache. She wishes to be discharged home. Past Med Surg Social Fam HX - Past Medical History Medical history: diabetes, kidney stones, thyroid disease, other Psychiatric history: depression - Past Surgical History Surgical History: cholecystectomy - Social History Smoking Status: Current every day smoker Packs per day: 1/2 Smokeless Tobacco Status: No Alcohol use: none Drug use: none - Family History Mother Living Status: Still Living Hx Family Cardiac Disorders: (N/A) Hx Family Respiratory Disorders: Yes (ASTHMA) Hx Family Cancer: No Hx Family GI Disorders: No Hx Family Endocrine Disorder: Yes (THYROID) Hx Family Neuromuscular Disorders: No Hx Family Neurologic Disorders: No Hx Family HEENT Disorders: No Hx Family Autoimmune Disorders: No Internal Medicine - H&P: Meds Insulin ASPART [Novolog Flexpen] 5 unit SQ TIDWM 01/09/16 [History] Ondansetron [Zofran ODT] 4 mg SL Q6HR PRN #5 tab.rapdis 12/10/16 [Rx] Promethazine [Phenergan] 25 mg RC Q6HR PRN #10 supp.rect 12/10/16 [Rx] Insulin DETEMIR [Levemir Flextouch] 25 unit SQ DAILY #0 12/14/16 [Rx] Levothyroxine [Synthroid] 175 mcg PO 0630 #30 tablet 12/14/16 [Rx] Magnesium Oxide [Mag-Ox] 400 mg PO DAILY #7 tablet 12/14/16 [Rx] Phos-NaK [Neutra-Phos] 2 each PO BID #12 powd.pack 12/14/16 [Rx] Allergies No Known Allergies Allergy (Verified 12/10/16 10:40) All Systems PM: A 10-system review of systems was performed and is negative for pertinent findings except as documented above in the HPI. Review of systems: Her review of systems from the November 2016 hospitalization were reviewed and revised as below. Gen.: Her weight has decreased from 71.668 kg at the June 2016 hospitalization to 66.678 kg now. Cardiovascular: As per history of present illness Respiratory: She smoked since age 20 up to one half pack per day. She does not have known chronic lung disease and does not wear home oxygen. GI: She denies disorders of her liver gallbladder or exocrine pancreas : She has had kidney stones in the past. She denies other kidney or bladder disorders. She has had acute azotemia documented with previous episodes of DKA. Endocrine: As per history of present illness Neurologic: She denies large distribution strokes or seizures. Heme/onc: She denies blood disorders cancers or anemia. Psychiatric: She denies anxiety depression or other mental health issues Musk skeletal: She denies arthritis gout or osteoporosis. - Constitutional Vitals: Temp Pulse Resp BP Pulse Ox 98.7 F 72 17 97/64 97 06/05/17 16:15 06/05/17 16:15 06/05/17 16:15 06/05/17 16:15 06/05/17 16:15 Exam: Gen.: She is well-developed well-nourished female who appears in no acute distress at present time HEENT: Head is atraumatic and normocephalic. Eyes: EOMI. There is no scleral icterus. Mouth: Mucosa is moist. Neck: Supple and nontender. There is no thyromegaly or adenopathy noted. Heart: Regular without murmurs gallops or ectopics Lungs: No wheezes or crackles are heard. Abdomen: Soft and nontender. No masses or guarding noted. Extremities: There is no cyanosis edema or clubbing noted. Dorsalis pedis and posterior tibial pulses are trace palpable bilaterally. Neurologic: Mental status: She is talkative and a fair to good historian. She does not remember some details of her past history. Cranial nerves: Smile is symmetric. Forehead wrinkles bilaterally. Tongue protrudes midline EOMI. Motor: There is no pronator drift. Cerebellar: Finger to nose is intact bilaterally. Skin: Warm and dry Internal Med - H&P Results - Labs CBC & Chem 7: 06/04/17 19:05 06/05/17 07:13 Labs: BMP 06/05/17 07:13 Sodium 134 L Potassium 3.7 Chloride 104 Carbon Dioxide 20 BUN 12 Creatinine 0.79 Glucose 337 H Calcium 8.0 L D Cardiac Enzymes 06/05/17 06/05/17 Range/Units 01:03 07:13 Troponin I 0.01 0.00 (0-0.03) ng/mL
--- NOTE | 2017-06-05 18:47 | Discharge Summary ---
Date of Encounter: 06/05/17 Time of Encounter: 18:00 - Discharge Diagnosis (1) Chest pain Priority: Primary Status: Resolved Qualifiers: Chest pain type: unspecified Qualified Code(s): R07.9 - Chest pain, unspecified (2) Diabetes Priority: Secondary Status: Chronic Qualifiers: Diabetes mellitus type: type 1 Diabetes mellitus complication status: without complication Qualified Code(s): E10.9 - Type 1 diabetes mellitus without complications - Discharge Medications Prescriptions: Magnesium Oxide [Mag-Ox] 400 mg PO BID #14 tablet Home Medications: Insulin ASPART [Novolog Flexpen] 5 unit SQ TIDWM 01/09/16 [History] Ondansetron [Zofran ODT] 4 mg SL Q6HR PRN #5 tab.rapdis 12/10/16 [Rx] Promethazine [Phenergan] 25 mg RC Q6HR PRN #10 supp.rect 12/10/16 [Rx] Insulin DETEMIR [Levemir Flextouch] 25 unit SQ DAILY #0 12/14/16 [Rx] Levothyroxine [Synthroid] 175 mcg PO 0630 #30 tablet 12/14/16 [Rx] Magnesium Oxide [Mag-Ox] 400 mg PO BID #14 tablet 06/05/17 [Rx] Allergies/Adverse Reactions: Allergies No Known Allergies Allergy (Verified 12/10/16 10:40) Date of admission: 06/04/17 22:38 Primary care physician: Brandy Joiner CNP - Patient Status Disposition: Home, Self-Care Condition: Fair Functional capacity at discharge: independent ambulation Overall status at discharge: patient is progressing back to baseline - Discharge Instructions Follow Up With: Brandy Joiner RECREATIONAL COUNSELOR [Advanced Practice Nurse] - 1 week - Diet and Activity Activity: resume usual activities as tolerated Diet: diabetic diet Hospital course: Ms. Puga is a 32 year old female who came to emergency room stating she had sharp chest pain while doing leisure activities early the day of admission. She reports a single episode of vomiting. She decided to come to emergency room and was evaluated and found to have ketosis with significant hyperglycemia with blood sugar 496 mg/dL. She did not have acidosis. She was admitted to [facility] for ongoing care needs. Initial orders were written by the emergency room physician. I saw her on June 05 and performed a history physical and discharge. Repeat cardiac enzymes showed no evidence of myocardial damage. When I saw her did not think the pain was likely to be of myocardial ischemic origin. The etiology of the pain was not determined with certainty. She had no reoccurrence of the pain during her hospital stay. She was given IV fluids and had Accu-Cheks with SSI. Her blood sugar improved and returned to a safe range. I encouraged her to check blood sugar before meals and at bedtime and take her readings to her PCP Brandy Joiner CNP to review for adjustment of her insulin dose. Magnesium level returned low at 1.1. She was started on magnesium oxide during her hospital stay and will be continued at discharge. Her PCP can provide ongoing monitoring for this. Phosphorus level was not checked during her hospital stay. Her creatinine returned to normal range at 0.79 on June 05. When I saw her she was adamant she be discharged home. She declined an offer to stay an additional night have repeat lab work and blood sugar monitored etc. done. She will follow with her PCP Brandy Joiner within 1 week. She states she has not been instructed in diabetic diet. - Time Spent with Patient Total time spent providing and/or coordinating discharge services: - Constitutional Vitals: Temp Pulse Resp BP Pulse Ox 98.7 F 72 17 97/64 97 06/05/17 16:15 06/05/17 16:15 06/05/17 16:15 06/05/17 16:15 06/05/17 16:15
== END 2017-06-05 19:23 | disposition home or self-care (01) ==
LOC: INPPIK 18:32 → EMEROOPIK 18:32 → INPPIK 23:00
PROVIDERS: ADMIT Internal Medicine; ATTEND Internal Medicine

== ENCOUNTER 2017-09-13 18:57 | Observation (INO) ==
--- NOTE | 2017-09-13 19:19 | Emergency Department Note ---
Disposition Clinical Impression: DKA (diabetic ketoacidoses) Disposition: Admitted As Inpatient Referrals: Brandy Joiner CNP [Primary Care Provider] - Nausea/Vomiting/Diarrhea HPI - General Chief complaint: ED Nausea/Vomiting/Diarrhea Stated complaint: vomiting,diarrhea, intermittant chest pain Time Seen by Provider: 09/13/17 19:05 Source: patient Mode of arrival: ambulatory Limitations: no limitations Nursing Notes Reviewed: Yes Vital Signs Reviewed: Yes - History of Present Illness HPI Narrative: Patient complains of nausea vomiting and diarrhea. She denies any shortness of breath or belly pain. She is not sure if she has a fever she denies any urinary symptoms. She also complained of "a little chest pain" but then tells us had the same chest pains for 2 years after she had CPR done on her chest. Pt Subjective Complaint: nausea, vomiting, diarrhea Onset (ago): Just ADVICE LINE RN Description of emesis: food contents Description of Diarrhea: other (loose stool) Severity: none Consistency: intermittent Improves with: nothing Worsens with: nonthing Associated symptoms: Reports: nausea/vomiting - Related Data Home Medications Medication Instructions Recorded Confirmed Insulin ASPART [Novolog Flexpen] 5 unit SQ TIDWM 01/09/16 12/10/16 Previous Rx's Medication Instructions Recorded Insulin DETEMIR [Levemir Flextouch] 25 unit SQ DAILY #0 12/14/16 Levothyroxine [Synthroid] 175 mcg PO 0630 #30 tablet 12/14/16 Allergies Allergy/AdvReac Type Severity Reaction Status Date / Time No Known Allergies Allergy Verified 12/10/16 10:40 All systems ED: reviewed and negative except as stated. Constitutional: Denies: fever, chills, weakness, weight change Eyes: Denies: eye pain, eye discharge, vision change ENT ED: Denies: ear pain, throat pain, dental pain, hearing loss, epistaxis, congestion, dysphagia Cardiovascular: Reports: as per HPI, chest pain. Denies: palpitations, dyspnea on exertion, edema, syncope Respiratory: Denies: cough, dyspnea, wheezes, hemoptysis, stridor Gastrointestinal: Reports: as per HPI, nausea, vomiting, diarrhea. Denies: abdominal pain, constipation, hematemesis, melena, hematochezia Genitourinary: Denies: dysuria, frequency, hematuria, discharge Musculoskeletal: Denies: back pain, neck pain, arthralgia, myalgia Integumentary: Denies: rash, abrasion, lesions Neurological: Denies: headache, weakness, numbness, paresthesias, confusion, abnormal gait, vertigo Psychiatric: Denies: anxiety, depression, suicidal thoughts, homicidal thoughts , auditory hallucinations, visual hallucinations Endocrine: Denies: fatigue Hematological/Lymphatic: Denies: easy bleeding, easy bruising Allergic/Immunologic: Denies: facial swelling, urticaria Past Medical History - Past Medical History Attestation: Yes The following information was validated with the patient. Source: patient Medical history: Reports: diabetes, kidney stones, thyroid disease, other Surgical history: Reports: cholecystectomy Psychiatric history: Reports: depression PRINCIPAL CYBER ENGINEER history: Reports: no PRINCIPAL CYBER ENGINEER history - Social History Smoking Status: Current every day smoker Smokeless Tobacco Status: No Alcohol use: Reports: none Drug use: Reports: none Physical Exam - General Limitations: no limitations General appearance: alert, in no apparent distress - Head Head exam: atraumatic, normocephalic, normal inspection - Eye Eye exam: Present: normal appearance, PERRL, EOMI - ENT ENT exam: normal exam, normal oropharynx, mucous membranes moist - Neck Neck exam: Present: normal inspection, full ROM, trachea midline - Chest Chest inspection: Present: normal inspection, symmetric chest wall rise - Respiratory Respiratory exam: Present: normal lung sounds bilaterally - Cardiovascular Cardiovascular exam: Present: regular rate, normal rhythm, normal heart sounds - Abdominal Exam Abdominal exam: Present: soft, Non-Tender - Extremities Exam Extremities exam: Present: normal inspection - Neurological Exam Neurological exam: Present: alert, oriented X3 - Psychiatric Psychiatric exam: Present: normal affect, normal mood - Skin Skin exam: Present: warm, dry, intact Course Vital Signs Temperature 99.9 F H 09/13/17 19:00 Pulse Rate 116 09/13/17 19:00 Respiratory Rate 18 09/13/17 19:00 Blood Pressure 105/67 09/13/17 19:00 O2 Sat by Pulse Oximetry 99 09/13/17 19:00 Temperature 99.9 F H 09/13/17 19:00 Pulse Rate 116 09/13/17 19:00 Respiratory Rate 18 09/13/17 19:00 Blood Pressure 105/67 09/13/17 19:00 O2 Sat by Pulse Oximetry 99 09/13/17 19:00 Oxygen Delivery Oxygen Delivery Room Air Nausea/Vomiting/Diarrhea - MDM Narrative Medical decision making narrative: Case was discussed with Dr. Ruby he agrees with admission to the hospital. - Lab Data Lab results reviewed: Yes I reviewed the patient's lab results. - EKG Data EKG attestation: Yes I reviewed and interpreted this EKG. EKG results narrative: Review the patient's EKG shows a relative sinus tachycardia with a rate of 111 bpm VT interval 161 ms QRS duration 81 ms R axis of 79 degrees QTC intervals are normal.
[2017-09-13] MEDS ORDERED: 0.9 % Sodium Chloride 1,000 ML IVC ONE (19:21)
[2017-09-13 19:51] LABS: Basophils % 0.4 %; Eosinophils % 0.1 %; Hematocrit 40.9 % (35.3-44.9); Hemoglobin 13.7 g/dL (11.5-15.4); Immature Granulocytes % 0.4 % (0-4); Lymphocytes # 1.3 K/mcL (0.6-4.6); Lymphocytes % 12.8 %; Mean Corpuscular HGB Conc 33.5 g/dL (31.6-35.5); Mean Corpuscular Hemoglobin 30.7 pg (28.0-33.3); Mean Corpuscular Volume 91.7 fL (83.0-100.0); Mean Platelet Volume 10.4 fL (9.4-12.4); Monocytes # 0.7 K/mcL (0.0-1.3); Monocytes % 6.5 %; Platelet Count 297 K/mcL (140-400); Red Blood Count 4.46 M/mcL (3.82-4.97); Red Cell Distribution Width 11.9 % (11.5-14.5); Segmented Neutrophils % 79.8 %
[2017-09-13 19:55] LABS: VBG HCO3 14 mEq/L (21-27); VBG PCO2 34 mmHg (41-51); VBG PH 7.23 pH Units (7.32-7.42); VBG PO2 33 mmHg (25-50)
[2017-09-13 19:57] LABS: Beta-Hydroxybutyric Acid > 2.00 mmol/L (0.02-0.27)
[2017-09-13 20:09] LABS: BUN/Creatinine Ratio 12 (6-26); Blood Urea Nitrogen 17 mg/dL (7-20); Calcium 9.7 mg/dL (8.6-10.8); Carbon Dioxide 13 mEq/L (19-29); Chloride 98 mEq/L (98-109); Osmolality,Calculated 308 (280-300); Potassium 4.6 mEq/L (3.5-4.5); Sodium 136 mEq/L (136-145); eGFR For African Americans 55 (> 60); eGFR For Non-African Americans 45 (> 60)
[2017-09-13 20:16] LABS: Glucose 540 mg/dL (70-99)
[2017-09-13 20:27] LABS: Bilirubin,Urine Small (Negative); Blood,Urine Negative (Negative); Clarity,Urine Clear (Clear); Glucose,Urine (UA) 500 mg/dL (Normal); Ketones,Urine >=160 mg/dL (Negative); Leukocyte Esterase,Urine Negative (Negative); Nitrite,Urine Negative (Negative); Protein,Urine Negative (Neg-Trace); Specific Gravity,Urine 1.015 (1.010-1.025); Urobilinogen,Urine Normal (Normal)
[2017-09-13 20:33] LABS: Color,Urine Light Yellow (Yellow)
[2017-09-13 20:34] LABS: ABG Base Excess -13 mEq/L (-2 to 3); ABG HCO3 11 mEq/L (21-27); ABG Oxygen Saturation 96 % (95-98); ABG PCO2 23 mmHg (35-45); ABG PH 7.31 pH Units (7.32-7.45); ABG PO2 86 mmHg (85-104); ABG TCO2 12 mEq/L (20-26)
[2017-09-13] MEDS ORDERED: 0.9 % Sodium Chloride 1,000 ML IVC STA (20:45)
[2017-09-13] MEDS ORDERED: 0.9 % Sodium Chloride 1,000 ML ONE ×2 (20:47→22:40)
[2017-09-13] MEDS ORDERED: Insulin Human Regular 100 UNIT in 0.9 % Sodium Chloride 100 ML IVC SCH (22:40)
[2017-09-13] MEDS ORDERED: Ondansetron 4 MG/2 ML VIAL IVP PRN (22:40)
[2017-09-13] MEDS ORDERED: *HR* Dextrose 50 % in Water (Syg) 50 ML SYRINGE IVP PRN (22:40)
[2017-09-13] MEDS ORDERED: D5% in 0.45% NACL 1,000 ML IVC PRN (22:40)
[2017-09-13] MEDS ORDERED: Naloxone 0.4 MG/ML INJ IVP PRN (22:40)
[2017-09-13] MEDS: Insulin Human Regular 100 UNIT in 0.9 % Sodium Chloride 100 ML IVC SCH (23:38)
[2017-09-13] MEDS: 0.9 % Sodium Chloride 1,000 ML IVC SCH (23:40)
[2017-09-14] MEDS: Acetaminophen 325 MG TABLET PO PRN ×2 (00:19→08:51)
[2017-09-14 04:50] LABS: Basophils % 0.4 %; Eosinophils # 0.1 K/mcL (0.0-0.6); Eosinophils % 1.3 %; Hematocrit 33.2 % (35.3-44.9); Hemoglobin 11.4 g/dL (11.5-15.4); Immature Granulocytes % 0.2 % (0-4); Lymphocytes # 2.9 K/mcL (0.6-4.6); Lymphocytes % 28.5 %; Mean Corpuscular HGB Conc 34.3 g/dL (31.6-35.5); Mean Corpuscular Hemoglobin 30.6 pg (28.0-33.3); Monocytes # 0.7 K/mcL (0.0-1.3); Monocytes % 7.1 %; Neutrophils # 6.3 K/mcL (1.6-8.9); Platelet Count 259 K/mcL (140-400); Red Blood Count 3.73 M/mcL (3.82-4.97); Red Cell Distribution Width 11.9 % (11.5-14.5); Segmented Neutrophils % 62.5 %
[2017-09-14 05:07] LABS: VBG HCO3 21 mEq/L (21-27); VBG PCO2 40 mmHg (41-51); VBG PH 7.33 pH Units (7.32-7.42); VBG PO2 65 mmHg (25-50)
[2017-09-14 05:15] LABS: BUN/Creatinine Ratio 16 (6-26); Blood Urea Nitrogen 14 mg/dL (7-20); Calcium 8.2 mg/dL (8.6-10.8); Carbon Dioxide 18 mEq/L (19-29); Chloride 111 mEq/L (98-109); Glucose 102 mg/dL (70-99); Osmolality,Calculated 291 (280-300); Potassium 3.2 mEq/L (3.5-4.5); Sodium 140 mEq/L (136-145); eGFR For African Americans > 60 (> 60); eGFR For Non-African Americans > 60 (> 60)
[2017-09-14] MEDS: Insulin Human Regular 100 UNIT in 0.9 % Sodium Chloride 100 ML IVC SCH (05:42)
[2017-09-14 07:13] VITALS: BP 98/61
[2017-09-14] MEDS ORDERED: Famotidine 20 MG TABLET PO SCH (07:30)
[2017-09-14] MEDS: 0.9 % Sodium Chloride 1,000 ML IVC SCH ×2 (08:39→12:42)
[2017-09-14] MEDS: Insulin LISPRO 300 UNITS/3 ML VIAL SQ SCH ×2 (08:41→11:38)
[2017-09-14] MEDS ORDERED: FLUARIX QUAD 2017-18 36MOS UP/PF 0.5 ML SYRINGE IM ONE (12:05)
--- NOTE | 2017-09-14 12:26 | Internal Med History&Physical ---
Date of Encounter: 09/14/17 Time of Encounter: 12:05 Assessment and Plan (1) DKA (diabetic ketoacidosis) Current visit: Yes Status: Acute She was started on IV fluids and insulin in emergency room. Repeat labs were ordered. Qualifiers: Diabetes mellitus type: type 1 Diabetes mellitus complication detail: without coma Qualified Code(s): E10.10 - Type 1 diabetes mellitus with ketoacidosis without coma (2) Azotemia Current visit: Yes Status: Acute Acute probably secondary to dehydration from DKA. IV fluids were started. Repeat labs were ordered which show now resolved. Internal Medicine - H&P: HPI Chief complaint: Weakness, dizziness, vomiting Admitted From: Home Plans for Post Hospital Care: Home History of present illness: Ms. Puga is a 32 year old female who came to emergency room stating she had onset of lightheadedness with 4-5 episodes vomiting at home. There was no pain and minimal diarrhea associated. She was evaluated in the emergency room and found to have DKA. She was admitted to [facility] floor for ongoing care needs. She has had DKA on several occasions in the past. She was diagnosed with diabetes in 2011 and checks her blood sugars 3-4 times daily. She states there is significant fluctuation in her readings ranging 80-400+ mg%. She does not follow a diabetic diet. Her endocrine history is pertinent otherwise for hyperlipidemia and hypothyroidism. She states she feels significantly improved at the present time and wishes to be discharged home. Past Med Surg Social Fam HX - Past Medical History Medical history: diabetes, kidney stones, thyroid disease, other Psychiatric history: depression - Past Surgical History Surgical History: cholecystectomy - Social History Smoking Status: Current every day smoker Smokeless Tobacco Status: No Alcohol use: none Drug use: none - Family History Mother Living Status: Still Living Hx Family Cardiac Disorders: (N/A) Hx Family Respiratory Disorders: Yes (ASTHMA) Hx Family Cancer: No Hx Family GI Disorders: No Hx Family Endocrine Disorder: Yes (THYROID) Hx Family Neuromuscular Disorders: No Hx Family Neurologic Disorders: No Hx Family HEENT Disorders: No Hx Family Autoimmune Disorders: No Internal Medicine - H&P: Meds Insulin ASPART [Novolog Flexpen] 5 unit SQ TIDWM 01/09/16 [History] Levothyroxine [Synthroid] 175 mcg PO 0630 #30 tablet 12/14/16 [Rx] Insulin DETEMIR [Levemir] 22 unit SQ QAM 09/14/17 [History] 3 Allergy/AdvReac Type Severity Reaction Status Date / Time No Known Allergies Allergy Verified 12/10/16 10:40 All Systems PM: A 10-system review of systems was performed and is negative for pertinent findings except as documented above in the HPI. Review of systems: Review of systems from her May 2017 [facility] hospitalization were reviewed and revised as below. Gen.: Her weight has decreased from 71.668 kg at the June 2016 hospitalization to 65.771 kg now. Cardiovascular: She denies [place] hypertension heart failure angina DVT or pulmonary embolus. She had minimal chest pain that she describes as a sharp sensation yesterday. Respiratory: She smoked since age 20 up to one half pack per day. She does not have known chronic lung disease and does not wear home oxygen. GI: She denies disorders of her liver gallbladder or exocrine pancreas : She has had kidney stones in the past. She denies other kidney or bladder disorders. She has had acute azotemia documented with previous episodes of DKA. Endocrine: As per history of present illness Neurologic: She denies large distribution strokes or seizures. Heme/onc: She denies blood disorders cancers or anemia. Psychiatric: She denies anxiety depression or other mental health issues Musk skeletal: She denies arthritis gout or osteoporosis. - Constitutional Vitals: Temp Pulse Resp BP Pulse Ox 98.4 F 99 14 98/61 95 09/14/17 07:10 09/14/17 07:10 09/14/17 07:10 09/14/17 07:10 09/14/17 07:10 Exam: Gen.: She is a well-developed well-nourished female who appears in no acute distress at present time. HEENT: Head is atraumatic and normocephalic. Eyes: EOMI. There is no scleral icterus. Mouth: Mucosa is moist. Neck: Supple and nontender. There is no thyromegaly or adenopathy noted. Heart: Regular without murmurs gallops or ectopics Lungs: No wheezes or crackles are heard. Abdomen: Soft and nontender. No masses or guarding are noted. Extremities: There is no cyanosis edema or clubbing noted. Dorsalis pedis and posttibial pulses are trace to 1+ palpable bilaterally. Neurologic: Mental status: She is talkative and a good historian. Cranial nerves: Smile is symmetric. Forehead wrinkles bilaterally. Tongue protrudes midline. EOMI. Motor: There is no pronator drift. Cerebellar: Finger to nose is intact bilaterally. Skin: Warm and dry Internal Med - H&P Results - Labs CBC & Chem 7: 09/14/17 04:40 09/14/17 04:40 Labs: Short CBC 09/14/17 Range/Units 04:40 WBC 10.1 (4.3-11.1) K/mcL Hgb 11.4 L D (11.5-15.4) g/dL Hct 33.2 L (35.3-44.9) % Plt Count 259 (140-400) K/mcL Neutrophils # 6.3 (1.6-8.9) K/mcL BMP 09/14/17 04:40 Sodium 140 Potassium 3.2 L D Chloride 111 H Carbon Dioxide 18 L BUN 14 Creatinine 0.87 Glucose 102 H Calcium 8.2 L D - ABG Interpretation ABG results: 09/14/17 05:03 VBG pH 7.33 VBG pCO2 40 L VBG pO2 65 H VBG HCO3 21
--- NOTE | 2017-09-14 12:36 | Discharge Summary ---
Date of Encounter: 09/14/17 Time of Encounter: 12:05 - Discharge Diagnosis (1) DKA (diabetic ketoacidosis) Priority: Primary Status: Acute Qualifiers: Diabetes mellitus type: type 1 Diabetes mellitus complication detail: without coma Qualified Code(s): E10.10 - Type 1 diabetes mellitus with ketoacidosis without coma (2) Azotemia Priority: Secondary Status: Resolved - Discharge Medications Home Medications: Insulin ASPART [Novolog Flexpen] 5 unit SQ TIDWM 01/09/16 [History] Levothyroxine [Synthroid] 175 mcg PO 0630 #30 tablet 12/14/16 [Rx] Insulin DETEMIR [Levemir] 22 unit SQ QAM 09/14/17 [History] Allergies/Adverse Reactions: 3 Allergy/AdvReac Type Severity Reaction Status Date / Time No Known Allergies Allergy Verified 12/10/16 10:40 Date of admission: 09/13/17 22:16 Primary care physician: Brandy Joiner CNP - Patient Status Disposition: Home, Self-Care Overall status at discharge: patient is progressing back to baseline - Discharge Instructions Follow Up With: Brandy Joiner CNP [Primary Care Provider] - 1 week - Diet and Activity Activity: resume usual activities as tolerated Diet: diabetic diet Hospital course: Ms. Puga is a 32 year old female who came to emergency room stating she had onset of lightheadedness with 4-5 episodes vomiting at home. There was no pain and minimal diarrhea associated. She was evaluated in the emergency room and found to have DKA. She was admitted to [facility] floor for ongoing care needs. Initial orders were written by the emergency room physician. I saw her on September 14 and performed a history and physical and discharge. She was given IV fluids and insulin in emergency room. Accu-Cheks were done before meals and at bedtime with SSI given. Her blood sugar had returned to satisfactory range of 102 on morning of September 14. Her acidosis and azotemia had resolved and she was tolerating adequate amounts of food and fluid. She wished to be discharged home. Encouraged her to make significant lifestyle changes by following a diabetic diet and discontinuing smoking. She was instructed to follow with her PCP within one week. Urged her to avoid NSAID use. - Time Spent with Patient Total time spent providing and/or coordinating discharge services: - Constitutional Vitals: Temp Pulse Resp BP Pulse Ox 98.4 F 99 14 98/61 95 09/14/17 07:10 09/14/17 07:10 09/14/17 07:10 09/14/17 07:10 09/14/17 07:10
--- NOTE | 2017-09-14 15:36 | Electrocardiograph Report ---
[address] [address] Test Date: 2017-09-13 Pat Name: Lisa Puga Department: [id number] Room: [facility] Gender: F Post Closer: [id number] 1985 Requested By: Austin Call Order Number: [id number] Reading MD: Julio Huffman Measurements Intervals [place] Rate: 111 P: 75 FL: 161 QRS: 79 QRSD: 81 T: 71 QT: 323 QTc: 389 Interpretive Statements SINUS TACHYCARDIA ABNORMAL RHYTHM ECG Electronically Signed On 09-14-2017 15:35:27 EDT by Julio Huffman
[2017-09-14] MEDS ORDERED: Insulin LISPRO 300 UNITS/3 ML VIAL SQ SCH (21:00)
== END 2017-09-14 13:05 | disposition home or self-care (01) ==
LOC: INPPIK 18:57 → EMEROOPIK 18:57 → INPPIK 22:50
PROVIDERS: ADMIT Internal Medicine; ATTEND Internal Medicine

== ENCOUNTER 2017-11-02 09:03 | Observation (INO) ==
[2017-11-02] MEDS ORDERED: Insulin Regular, Human 100 UNIT/ML IV ONE (09:08)
[2017-11-02] MEDS ORDERED: *HR* Dextrose 50 % in Water (Syg) 50 ML SYRINGE IVP PRN ×2 (09:08→13:15)
--- NOTE | 2017-11-02 09:08 | Emergency Department Note ---
Disposition Clinical Impression: DKA (diabetic ketoacidoses) Qualifiers: Diabetes mellitus type: type 1 Diabetes mellitus complication detail: without coma Qualified Code(s): E10.10 - Type 1 diabetes mellitus with ketoacidosis without coma Disposition: Admitted As Inpatient Condition: Fair Referrals: Brandy Joiner CNP [Primary Care Provider] - Forms: ED Satisfaction Letter Time of Disposition: 11:42 General Adult HPI - General Chief complaint: ED Nausea/Vomiting/Diarrhea Stated complaint: high blood sugar Time Seen by Provider: 11/02/17 09:06 Source: patient, EMS Mode of arrival: EMS Limitations: no limitations Nursing Notes Reviewed: Yes Vital Signs Reviewed: Yes - History of Present Illness HPI Narrative: This is a 32-year-old frequent flier to the department complaining of hyperglycemia. She states that she has been vomiting this morning and now she has chest discomfort because of the vomiting. She states that she was unable to get her sugar under control as when she was unable to get out of bed this morning. She is unable tells how much insulin she normally takes. Her last time checking her sugar was October 28. - Related Data Home Medications Medication Instructions Recorded Confirmed Insulin ASPART [Novolog Flexpen] 5 unit SQ TIDWM 01/09/16 11/02/17 Insulin DETEMIR [Levemir] 22 unit SQ QAM 09/14/17 11/02/17 Previous Rx's Medication Instructions Recorded Levothyroxine [Synthroid] 175 mcg PO 0630 #30 tablet 12/14/16 Allergies Allergy/AdvReac Type Severity Reaction Status Date / Time No Known Allergies Allergy Verified 12/10/16 10:40 Review of Systems: ROS reviewed and negative except as per HPI Chart generated with voice recognition software Nursing notes reviewed Old records reviewed Past Medical History - Past Medical History Attestation: Yes The following information was validated with the patient. Source: patient, old records reviewed, nursing notes reviewed Medical history: Reports: diabetes, kidney stones, thyroid disease, other Surgical history: Reports: cholecystectomy Psychiatric history: Reports: depression [employer] G[employer] history: Reports: no [employer] history - Social History Smoking Status: Current every day smoker Smokeless Tobacco Status: No Alcohol use: Reports: none Drug use: Reports: none Physical Exam General: mild distress, VSS Head: normocephalic, atraumatic Eyes: EOMI, PERRLA mouth: moist mucous membranes Neck: NO CLA, Supple Chest wall: normal rise, no crepitus, no deformity noted Lungs: moving air well, no distress, no tachypnic while talking with me Heart: good perfusion Abd: soft, nontender, BS normal, nondistended : deferred MSK: strength equal in all four extremities Ext: moves all four extremities, no obvious deformities Skin: cap refill normal, warm, dry neuro : CN2-12 grossly intact, A&Ox3 Psych: normal affect, anxious Course Course Narrative: This is a 32-year-old type I diabetic who presents today with hyperglycemia. States she was unable to get this morning secondary to her sugar being too high. She has a history of being extremely noncompliant. Her sugar here was 788. This is higher than it was even by ambulance at 588 when they checked on her. This is concerning that she may have been consuming large amounts of carbohydrates and not checking her sugar. We gave her 6 units of insulin IV and 2 L of fluid. After which we rechecked her BMP. Her glucose is improving and her gap is closing however because she has such an elevated gap and her compliance is so poor I do not think she will do well if she goes home. At this time we started an insulin drip on the patient will continue some maintenance fluids. She was ordered a tray that is diabetic friendly to eat. Patient will be kept in the hospital at this time until her sugars under control and her gap is resolved. I think that if she continues in this fashion she is not going to do well long-term IV expressed this to her and encouraged her to follow a very low carbohydrate diet and to monitor her glucose at home closely. Patient expresses that she knows the importance of this. Dr Ruby consulted for admission. He accepted the patient. patient stable for admission at this time, labs improving. Handouts given on low carb diets, diets to help with diabetes. Vital Signs Temperature 98.6 F 11/02/17 09:06 Pulse Rate 91 11/02/17 09:06 Respiratory Rate 16 11/02/17 09:06 Blood Pressure 96/57 11/02/17 09:06 O2 Sat by Pulse Oximetry 98 11/02/17 09:06 Temperature 98.6 F 11/02/17 09:06 Pulse Rate 104 11/02/17 11:19 Respiratory Rate 16 11/02/17 11:19 Blood Pressure 106/51 12/07/17 11:19 O2 Sat by Pulse Oximetry 99 11/02/17 11:19 Oxygen Delivery Oxygen Delivery Room Air Medical Decision Making - Medical Records Medical records reviewed: Yes I reviewed the patient's medical records. - Lab Data Lab results reviewed: Yes I reviewed the patient's lab results. Result diagrams: 11/02/17 09:34 11/02/17 11:00 Lab Results 11/02/17 11/02/17 11/02/17 Range/Units 09:26 09:34 09:34 WBC 13.2 H (4.3-11.1) K/mcL RBC 4.75 (3.82-4.97) M/mcL Hgb 14.7 (11.5-15.4) g/dL Hct 44.3 (35.3-44.9) % MCV 93.3 (83.0-100.0) fL MCH 30.9 (28.0-33.3) pg MCHC 33.2 (31.6-35.5) g/dL RDW 11.7 (11.5-14.5) % Plt Count 288 (140-400) K/mcL MPV 10.8 (9.4-12.4) fL Immature Gran % 0.5 (0-4) % Seg Neutrophils % 68.3 % Lymphocytes % 24.2 % Monocytes % 4.3 % Eosinophils % 2.1 % Basophils % 0.6 % Neutrophils # 9.0 H (1.6-8.9) K/mcL Lymphocytes # 3.2 (0.6-4.6) K/mcL Monocytes # 0.6 (0.0-1.3) K/mcL Eosinophils # 0.3 (0.0-0.6) K/mcL Basophils # 0.1 (0.0-0.2) K/mcL Sample Site R Brach ABG pH 7.33 (7.32-7.45) pH Units ABG pCO2 23 L (35-45) mmHg ABG pO2 86 (85-104) mmHg ABG HCO3 12 L (21-27) mEq/L ABG Total CO2 13 L (20-26) mEq/L ABG O2 Saturation 96 (95-98) % ABG Base Excess -12 L (-2 to 3) mEq/L Oneal Test N/A Inspired O2 21.0 (1-15=lpm [id number]=%) Sodium 134 L (136-145) mEq/L Potassium 4.9 H (3.5-4.5) mEq/L Chloride 97 L (98-109) mEq/L Carbon Dioxide 11 L (19-29) mEq/L BUN 22 H (7-20) mg/dL Creatinine 1.57 H (0.57-1.11) mg/dL Est GFR ( Amer) 47 L (> 60) Est GFR (Non-Af Amer) 39 L (> 60) BUN/Creatinine Ratio 14 (6-26) Glucose 740 H* (70-99) mg/dL Calculated Osmolality 317 H (280-300) Lactic Acid (0.5-2.2) mmol/L Calcium 10.3 (8.6-10.8) mg/dL Magnesium 1.6 (1.6-2.6) mg/dL Total Bilirubin 0.4 (0.2-1.2) mg/dL AST 11 (5-34) Units/L ALT 9 (0-55) Units/L Alkaline Phosphatase 140 H (38-126) Units/L Troponin I (0-0.03) ng/mL Serum Total Protein 8.5 H (6.0-8.3) g/dL Albumin 4.1 (3.5-5.0) g/dL Globulin 4.4 H (2.4-3.5) g/dL Albumin/Globulin Ratio 0.9 L (1.1-2.2) 11/02/17 11/02/17 11/02/17 Range/Units 09:34 09:34 11:00 WBC (4.3-11.1) K/mcL RBC (3.82-4.97) M/mcL Hgb (11.5-15.4) g/dL Hct (35.3-44.9) % MCV (83.0-100.0) fL MCH (28.0-33.3) pg MCHC (31.6-35.5) g/dL RDW (11.5-14.5) % Plt Count (140-400) K/mcL MPV (9.4-12.4) fL Immature Gran % (0-4) % Seg Neutrophils % % Lymphocytes % % Monocytes % % Eosinophils % % Basophils % % Neutrophils # (1.6-8.9) K/mcL Lymphocytes # (0.6-4.6) K/mcL Monocytes # (0.0-1.3) K/mcL Eosinophils # (0.0-0.6) K/mcL Basophils # (0.0-0.2) K/mcL Sample Site ABG pH (7.32-7.45) pH Units ABG pCO2 (35-45) mmHg ABG pO2 (85-104) mmHg ABG HCO3 (21-27) mEq/L ABG Total CO2 (20-26) mEq/L ABG O2 Saturation (95-98) % ABG Base Excess (-2 to 3) mEq/L Oneal Test Inspired O2 (1-15=lpm va81-128=%) Sodium 137 (136-145) mEq/L Potassium 4.1 (3.5-4.5) mEq/L Chloride 103 (98-109) mEq/L Carbon Dioxide 11 L (19-29) mEq/L BUN 23 H (7-20) mg/dL Creatinine 1.45 H (0.57-1.11) mg/dL Est GFR ( Amer) 51 L (> 60) Est GFR (Non-Af Amer) 42 L (> 60) BUN/Creatinine Ratio 16 (6-26) Glucose 588 H* (70-99) mg/dL Calculated Osmolality 315 H (280-300) Lactic Acid 3.5 H (0.5-2.2) mmol/L Calcium 9.0 (8.6-10.8) mg/dL Magnesium (1.6-2.6) mg/dL Total Bilirubin (0.2-1.2) mg/dL AST (5-34) Units/L ALT (0-55) Units/L Alkaline Phosphatase (38-126) Units/L Troponin I 0.01 (0-0.03) ng/mL Serum Total Protein (6.0-8.3) g/dL Albumin (3.5-5.0) g/dL Globulin (2.4-3.5) g/dL Albumin/Globulin Ratio (1.1-2.2) - Radiology Data Radiology results reviewed: Yes I reviewed the patient's radiology results. Critical Care Time Critical Care Time: Yes Total Critical Care Time: 45 Attestation: The high probability of a clinically significant, sudden or life threatening deterioration of the [vascular] system(s) required my full and direct attention , intervention and personal management. The aggregate critical care time was [50 ] minutes. This time is in addition to time spent performing reported procedures but includes the following: [x] Data Review and interpretation [x] Patient assessment and monitoring of vital signs [x] Documentation [x] Medication orders and management
[2017-11-02] MEDS ORDERED: Insulin Human Regular 100 UNIT in 0.9 % Sodium Chloride 100 ML IVC SCH ×2 (09:15→13:15)
[2017-11-02 09:29] LABS: ABG Base Excess -12 mEq/L (-2 to 3); ABG HCO3 12 mEq/L (21-27); ABG Oxygen Saturation 96 % (95-98); ABG PCO2 23 mmHg (35-45); ABG PH 7.33 pH Units (7.32-7.45); ABG PO2 86 mmHg (85-104); ABG TCO2 13 mEq/L (20-26)
[2017-11-02 09:40] LABS: Basophils # 0.1 K/mcL (0.0-0.2); Basophils % 0.6 %; Eosinophils # 0.3 K/mcL (0.0-0.6); Eosinophils % 2.1 %; Hematocrit 44.3 % (35.3-44.9); Hemoglobin 14.7 g/dL (11.5-15.4); Immature Granulocytes % 0.5 % (0-4); Lymphocytes # 3.2 K/mcL (0.6-4.6); Lymphocytes % 24.2 %; Mean Corpuscular HGB Conc 33.2 g/dL (31.6-35.5); Mean Corpuscular Hemoglobin 30.9 pg (28.0-33.3); Mean Corpuscular Volume 93.3 fL (83.0-100.0); Mean Platelet Volume 10.8 fL (9.4-12.4); Monocytes # 0.6 K/mcL (0.0-1.3); Monocytes % 4.3 %; Platelet Count 288 K/mcL (140-400); Red Blood Count 4.75 M/mcL (3.82-4.97); Red Cell Distribution Width 11.7 % (11.5-14.5); Segmented Neutrophils % 68.3 %
[2017-11-02] MEDS: 0.9 % Sodium Chloride 1,000 ML IVC SCH ×2 (09:47→10:50)
[2017-11-02 10:00] LABS: Albumin 4.1 g/dL (3.5-5.0); Albumin/Globulin Ratio 0.9 (1.1-2.2); Bilirubin,Total 0.4 mg/dL (0.2-1.2); Calcium 10.3 mg/dL (8.6-10.8); Globulin 4.4 g/dL (2.4-3.5); Magnesium 1.6 mg/dL (1.6-2.6); Potassium 4.9 mEq/L (3.5-4.5); Total Protein 8.5 g/dL (6.0-8.3)
[2017-11-02 11:26] LABS: Potassium 4.1 mEq/L (3.5-4.5)
[2017-11-02 12:28] LABS: Bilirubin,Urine Small (Negative); Blood,Urine Large (Negative); Clarity,Urine Cloudy (Clear); Color,Urine Red (Yellow); Glucose,Urine (UA) 500 mg/dL (Normal); Ketones,Urine >=160 mg/dL (Negative); Leukocyte Esterase,Urine Negative (Negative); Nitrite,Urine Negative (Negative); Protein,Urine 100 mg/dL (Neg-Trace); Specific Gravity,Urine 1.015 (1.010-1.025); Urobilinogen,Urine Normal (Normal)
[2017-11-02 12:37] LABS: Bacteria,Urine Few per hpf (None-Few); RBC,Urine TNTC per hpf (0-3); Squamous Epithelial Cell,Urine Few per lpf (None-Few); WBC,Urine 0-3 per hpf (0-3)
[2017-11-02 12:46] LABS: Amphetamine Screen,Urine Negative ng/mL (Cutoff=1000); Barbiturate Screen,Urine Negative ng/mL (Cutoff=200); Benzodiazepines Screen,Urine Negative ng/mL (Cutoff=200); Cannabinoid Screen,Urine Negative ng/mL (Cutoff = 50); Cocaine Screen,Urine Negative ng/mL (Cutoff= 300); Opiate Screen,Urine Negative ng/mL (Cutoff=300); Phencyclidine Screen,Urine Negative ng/mL (Cutoff=25)
[2017-11-02] MEDS ORDERED: Mag Hydrox/Al Hydrox/Simeth 30 ML UDC PO PRN (13:15)
[2017-11-02] MEDS ORDERED: MOM Conc 10 ML UD.LIQ PO PRN (13:15)
[2017-11-02] MEDS ORDERED: 0.9 % Sodium Chloride 1,000 ML IVC SCH (13:15)
[2017-11-02] MEDS ORDERED: Ondansetron 4 MG/2 ML VIAL IVP PRN (13:15)
[2017-11-02] MEDS ORDERED: Insulin Regular, Human 100 UNIT/ML IV PRN (13:15)
[2017-11-02] MEDS ORDERED: Naloxone 0.4 MG/ML INJ IVP PRN (13:15)
[2017-11-02] MEDS ORDERED: 0.9 % Sodium Chloride w KCl 20 MEQ/1,000 ML MLS IVC SCH (13:15)
[2017-11-02] MEDS: Acetaminophen 325 MG TABLET PO PRN ×2 (14:35→19:55)
--- NOTE | 2017-11-02 17:19 | Internal Med History&Physical ---
Date of Encounter: 11/02/17 Time of Encounter: 16:45 Assessment and Plan (1) DKA (diabetic ketoacidosis) Current visit: Yes Status: Acute She has been started on IV fluids and insulin drip. Blood sugars and other labs will be monitored Qualifiers: Diabetes mellitus type: type 1 Diabetes mellitus complication detail: without coma Qualified Code(s): E10.10 - Type 1 diabetes mellitus with ketoacidosis without coma (2) Hypothyroid Current visit: No Status: Chronic We will check TSH in a.m. Qualifiers: Hypothyroidism type: unspecified Qualified Code(s): E03.9 - Hypothyroidism , unspecified (3) Azotemia Current visit: No Status: Acute Continue IV fluids. Recheck labs in a.m. Internal Medicine - H&P: HPI Chief complaint: Weakness and vomiting Admitted From: Emergency Dept Plans for Post Hospital Care: Home History of present illness: Ms. Puga is a 32 year old female who came to emergency room stating she had weakness dizziness and a single episode of vomiting after arising today. She reports feeling no symptoms last evening prior to bed. She denies coughing fever diarrhea pain. She was brought emergency room and found to have early DKA. She was admitted to [facility] floor for ongoing care needs. She was hospitalized at [facility] August 2017 with DKA. She has had several previous episodes also. She was diagnosed with diabetes in 2011 and checks blood sugars 3-4 times daily. She reports significant fluctuations in her readings. Hemoglobin A1c was 11.9 % on 12/12/2016. Her endocrine history is pertinent otherwise for hyperlipidemia and hypothyroidism. Past Med Surg Social Fam HX - Past Medical History Medical history: diabetes, kidney stones, thyroid disease, other Psychiatric history: depression - Past Surgical History Surgical History: cholecystectomy - Social History Smoking Status: Current every day smoker Smokeless Tobacco Status: No Alcohol use: none Drug use: none - Family History Mother Living Status: Still Living Hx Family Cardiac Disorders: (N/A) Hx Family Respiratory Disorders: Yes (ASTHMA) Hx Family Cancer: No Hx Family GI Disorders: No Hx Family Endocrine Disorder: Yes (THYROID) Hx Family Neuromuscular Disorders: No Hx Family Neurologic Disorders: No Hx Family HEENT Disorders: No Hx Family Autoimmune Disorders: No Internal Medicine - H&P: Meds Insulin ASPART [Novolog Flexpen] 5 unit SQ TIDWM 01/09/16 [History] Levothyroxine [Synthroid] 175 mcg PO 0630 #30 tablet 12/14/16 [Rx] Insulin DETEMIR [Levemir] 22 unit SQ QAM 09/14/17 [History] 3 Allergy/AdvReac Type Severity Reaction Status Date / Time No Known Allergies Allergy Verified 12/10/16 10:40 All Systems PM: A 10-system review of systems was performed and is negative for pertinent findings except as documented above in the HPI. Review of systems: Review of systems from her August 2017 [facility] hospitalization were reviewed and revised as below. Gen.: Her weight has decreased from 71.668 kg at the June 2016 hospitalization to 70.789 kg now. Cardiovascular: She denies [place] hypertension heart failure angina DVT or pulmonary embolus. Respiratory: She has smoked since age 20 up to one half pack per day. She does not have known chronic lung disease and does not wear home oxygen. GI: She denies disorders of her liver gallbladder or exocrine pancreas : She has had kidney stones in the past. She denies other kidney or bladder disorders. She has had acute azotemia documented with previous episodes of DKA. Endocrine: As per history of present illness Neurologic: She denies large distribution strokes or seizures. Heme/onc: She denies blood disorders cancers or anemia. Psychiatric: She denies anxiety depression or other mental health issues Musk skeletal: She denies arthritis gout or osteoporosis. - Constitutional Vitals: Temp Pulse Resp BP Pulse Ox 98.2 F 105 18 85/47 94 11/02/17 15:29 11/02/17 15:29 11/02/17 15:29 11/02/17 15:29 11/02/17 15:29 Exam: Gen.: She is a well-developed well-nourished female who appears in no severe distress at present time HEENT: Head is atraumatic and normocephalic. Eyes: EOMI. There is no scleral icterus. Mouth: Mucosa is moist. Neck: Supple and nontender. There is no thyromegaly or adenopathy noted. Heart: Regular without murmurs gallops or ectopics. Rate is approximately 100/ m. Lungs: No wheezes or crackles are heard. Abdomen: Soft and nontender. No masses or guarding are noted. Extremities: There is no cyanosis edema or clubbing noted. Dorsalis pedis and posttibial pulses are trace palpable bilaterally. Neurologic: Mental status: She is talkative and a good historian. Cranial nerves: Smile is symmetric. Forehead wrinkles bilaterally. Tongue protrudes midline. EOMI. Motor: There is no pronator drift. Cerebellar: Finger to nose is intact bilaterally. Skin: Warm and dry Internal Med - H&P Results - Labs CBC & Chem 7: 11/02/17 09:34 11/02/17 12:18 Labs: BMP 11/02/17 12:18 Glucose 485 H Urine 11/02/17 Range/Units 12:15 Urine Color Red A (Yellow) Urine Clarity Cloudy A (Clear) Urine pH 5.0 (5.0-8.0) pH Units Ur Specific [place] 1.015 (1.010-1.025) Urine Protein 100 H (Neg-Trace) mg/dL Urine Glucose (UA) 500 H (Normal) mg/dL
[2017-11-02] MEDS ORDERED: Insulin DETEMIR 100 UNIT/ML X5UNITS SQ SCH (17:45)
[2017-11-02] MEDS: 0.9 % Sodium Chloride w KCl 20 MEQ/1,000 ML MLS IVC SCH (19:55)
[2017-11-02] MEDS ORDERED: ALPRAZolam 0.5 MG TABLET PO PRN (20:31)
[2017-11-02] MEDS ORDERED: Nicotine 21 MG PATCH.TD24 TD SCH (20:45)
[2017-11-03] MEDS: 0.9 % Sodium Chloride w KCl 20 MEQ/1,000 ML MLS IVC SCH (05:44)
[2017-11-03 06:33] VITALS: BP 92/62
[2017-11-03 06:35] LABS: Hematocrit 32.8 % (35.3-44.9); Hemoglobin 11.3 g/dL (11.5-15.4); Immature Granulocytes % 0.3 % (0-4); Lymphocytes % 20.7 %; Mean Corpuscular HGB Conc 34.5 g/dL (31.6-35.5); Mean Corpuscular Volume 89.9 fL (83.0-100.0); Mean Platelet Volume 10.2 fL (9.4-12.4); Platelet Count 237 K/mcL (140-400); Red Blood Count 3.65 M/mcL (3.82-4.97); Red Cell Distribution Width 11.9 % (11.5-14.5); Segmented Neutrophils % 71.5 %
[2017-11-03 06:36] LABS: Basophils % 0.4 %; Eosinophils # 0.2 K/mcL (0.0-0.6); Eosinophils % 1.8 %; Lymphocytes # 2.2 K/mcL (0.6-4.6); Monocytes # 0.6 K/mcL (0.0-1.3); Monocytes % 5.3 %; Neutrophils # 7.7 K/mcL (1.6-8.9)
[2017-11-03 06:54] LABS: Alanine Aminotransferase 7 Units/L (0-55); Albumin 2.7 g/dL (3.5-5.0); Albumin/Globulin Ratio 0.9 (1.1-2.2); Alkaline Phosphatase 89 Units/L (38-126); Aspartate Amino Transferase 7 Units/L (5-34); BUN/Creatinine Ratio 20 (6-26); Bilirubin,Total 0.3 mg/dL (0.2-1.2); Blood Urea Nitrogen 16 mg/dL (7-20); Calcium 8.3 mg/dL (8.6-10.8); Carbon Dioxide 19 mEq/L (19-29); Chloride 109 mEq/L (98-109); Cholesterol 104 mg/dL (< 200); Globulin 3.1 g/dL (2.4-3.5); Glucose 285 mg/dL (70-99); HDL Cholesterol 52 mg/dL (40-59); LDL Cholesterol,Calculated 42 mg/dL (0-99); Osmolality,Calculated 296 (280-300); Phosphorous 2.8 mg/dL (2.3-4.7); Sodium 137 mEq/L (136-145); Total Protein 5.8 g/dL (6.0-8.3); Triglycerides 48 mg/dL (< 150); eGFR For African Americans > 60 (> 60); eGFR For Non-African Americans > 60 (> 60)
[2017-11-03 07:19] LABS: Thyroid Stimulating Hormone 27.286 mcIU/mL (0.350-4.840)
[2017-11-03 07:38] LABS: Beta-Hydroxybutyric Acid 1.81 mmol/L (0.02-0.27)
[2017-11-03] MEDS ORDERED: Insulin LISPRO 300 UNITS/3 ML VIAL SQ SCH ×2 (08:30→21:00)
[2017-11-03 08:50] LABS: Hemoglobin A1C 11.6 %
--- NOTE | 2017-11-03 09:03 | Discharge Summary ---
Date of Encounter: 11/03/17 Time of Encounter: 08:50 - Discharge Diagnosis (1) DKA (diabetic ketoacidosis) Priority: Primary Status: Acute Qualifiers: Diabetes mellitus type: type 1 Diabetes mellitus complication detail: without coma Qualified Code(s): E10.10 - Type 1 diabetes mellitus with ketoacidosis without coma (2) Hypothyroid Priority: Secondary Status: Chronic Qualifiers: Hypothyroidism type: unspecified Qualified Code(s): E03.9 - Hypothyroidism , unspecified (3) Azotemia Priority: Secondary Status: Resolved - Discharge Medications Prescriptions: Insulin Glargine,Hum.rec.anlog [Toujeo Solostar] 22 units SQ DAILY #1 pkg Home Medications: Insulin ASPART [Novolog Flexpen] 5 unit SQ TIDWM 01/09/16 [History] Levothyroxine [Synthroid] 175 mcg PO 0630 #30 tablet 12/14/16 [Rx] Insulin Glargine,Hum.rec.anlog [Toujeo Solostar] 22 units SQ DAILY #1 pkg [Rx] Allergies/Adverse Reactions: 3 Allergy/AdvReac Type Severity Reaction Status Date / Time No Known Allergies Allergy Verified 12/10/16 10:40 Date of admission: 11/02/17 12:04 Primary care physician: Brandy Joiner CNP - Patient Status Disposition: Home, Self-Care Condition: Fair Functional capacity at discharge: independent ambulation Overall status at discharge: patient is progressing back to baseline - Discharge Instructions Follow Up With: Brandy Joiner CNP [Primary Care Provider] - 1 week - Diet and Activity Activity: resume usual activities as tolerated Diet: diabetic diet Hospital course: Ms. Puga is a 32 year old female who came to emergency room stating she had weakness dizziness and a single episode of vomiting after arising today. She reports feeling no symptoms last evening prior to bed. She denies coughing fever diarrhea pain. She was brought emergency room and found to have early DKA. She was admitted to [facility] for ongoing care needs. Initial orders were written by the emergency room physician. I saw her on November 02 and performed the history and physical. She was started on IV fluids and insulin drip. Her blood sugars returned to a safe range. By the following day her azotemia and acidosis had resolved and ketosis had improved. She had no further vomiting and wished to be discharged home. She admitted she was not following a diabetic diet. I encouraged her to do this and to continue checking blood sugars regularly. She will follow with her PCP Brandy Joiner CNP within 1 week. She reported she was missing 1-3 doses of her Synthroid weekly because she would forget to take them. Her TSH returned elevated at 27.286. I encouraged her to use Synthroid daily. She will be discharged home and follow with her PCP within one week. I encouraged her to become a nonsmoker. Hemoglobin A1c was ordered with results pending at time of discharge. - Time Spent with Patient Total time spent providing and/or coordinating discharge services: - Constitutional Vitals: Temp Pulse Resp BP Pulse Ox 98.2 F 87 18 92/62 98 11/03/17 06:25 11/03/17 06:25 11/03/17 06:25 11/03/17 06:25 11/03/17 06:25
== END 2017-11-03 09:45 | disposition home or self-care (01) ==
LOC: INPPIK 09:03 → EMEROOPIK 09:03 → INPPIK 12:55
PROVIDERS: ADMIT Emergency Medicine; ATTEND Internal Medicine